=== PATIENT | female | born 1970 | race Asian ===

== ENCOUNTER 2025-08-25 16:06 | Emergency (ER) | payer BC, SELFPAY ==
[2025-08-25 16:09] VITALS: BP 139/66
[2025-08-25 16:36] LABS: Hematocrit 46.0 % (37.0-47.0); Hemoglobin 15.3 g/dL (12.0-16.0); Mean Corp Hgb Conc. 33.3 g/dL (33.0-37.0); Mean Corpuscular Volume 94.7 fL (81.0-99.0); Nucleated Red Blood Cells % 0 %; Platelet Count 237 10^3/uL (130-400); Red Cell Dist. Width 13.1 % (11.5-14.5)
[2025-08-25 16:46] LABS: ALT (SGPT) 21 U/L (0-35); AST (SGOT) 25 U/L (14-36); Albumin 5.0 g/dl (3.5-5.0); Alkaline Phosphatase 87 U/L (38-126); Blood Urea Nitrogen 28 mg/dl (7-17); Calcium 9.6 mg/dl (8.4-10.2); Carbon Dioxide 19 mmol/L (22-30); Chloride 104 mmol/L (98-107); Glucose 140 mg/dl (70-99); Potassium 4.5 mmol/L (3.5-5.1); Sodium 139 mmol/L (135-145); Total Protein 8.5 g/dl (6.3-8.2); eGFR > 60.00
--- NOTE | 2025-08-25 17:50 | ED.GENMED ---
History of Present Illness
General
Chief Complaint: Ear Problem
Source: patient and family
Exam Limitations: none
Time Seen by Provider: 08/25/25 17:07
History of Present Illness
History of Present Illness:
55-year-old female with past medical history of hypertension hyperlipidemia [place] on Eliquis presents to the ER complaining of left ear pain which started 1 week ago. She was placed on antibiotics (amoxicillin) by family doctor on Monday without
improvement. She was seen urgent care and started on Augmentin and methylprednisone yesterday. She reports she has had continued pain to her left face and left ear region which has gotten worse despite medications. She denies any fevers. She was
vomiting multiple times yesterday. Patient noted that her left eye was red today. Patient reports eye feels a little itchy denies any pain she does not wear contact lenses. Denies any decreased vision.
Phy Exam
General Physical Exam
General Presentation: no apparent distress
General age: appears stated age
General Skin: warm and dry
General Habitus: normal
General Mental: alert
General Hydration: appears well hydrated
ENT Exam
ENT Exam: EOMI, TM's normal and other (Left tympanic membrane appears normal left canal clear nontender over tragus; nontender over temporal region )
Eye Exam
Eye Exam: PERRL, EOMI and other (Left eye appears mildly injected)
Eye Exam General: PERRL: bilateral and EOM intact: bilateral
Pupil Exam: Bilateral: round and reactive
Neurological Exam
Neurological Exam: alert, oriented x3, no motor deficits and no sensory deficits
Musculoskeletal Exam
Musculoskeletal Exam: full ROM
Skin Exam
Skin Exam: normal color, warm/dry and other (No swelling to face no erythema to face)
Psychiatric Exam
Psychiatric Exam: normal mood/affect
Course
Orders/Labs/Results
Orders:
Orders
08/25/25 16:19
Complete Blood Count/With Diff Urgent
Comprehensive Metabolic Panel Urgent
08/25/25 17:59
CT Head W/o Iv Contrast Urgent
Comment:
Reason For Exam: headache
08/25/25 18:01
CT Facial Bones W/ Iv Contrast Urgent
Comment:
Reason For Exam: left ear/face pain
08/25/25 18:02
IV Insert/Care/Rem.- Treatment PRN
0.9% Sodium Chloride 1000 ml [Nss] 1,000 ml IV BOLUS
08/25/25 19:57
Ketorolac [Toradol] 15 mg IV NOW STA
08/25/25 20:02
Acetaminophen 1000MG/100Ml [Ofirmev] 1,000 mg in 100 ml IV ONCE
Acetaminophen IV Indication:: ED Narcotic Naive Pt-ONCE
Erythromycin (Ilotycin) [Erythromycin 0.5% Ophthalmic Ointment] See Dose Instructions OPHTH NOW STA
08/25/25 20:37
0.9% Sodium Chloride 1000 ml [Nss] 1,000 ml IV BOLUS
Diphenhydramine [Benadryl] 25 mg IV NOW STA
Metoclopramide [Reglan] 10 mg IV NOW STA
Abnormal Lab Results
08/25/25
16:19
MCH 31.5 H pg
(27.0-31.0)
Absolute Neuts (auto) 7.8 H 10^3/uL
(1.4-6.5)
Absolute Lymphs (auto) 0.7 L 10^3/uL
(1.2-3.4)
Neutrophils % 88.3 H %
(42.2-75.2)
Lymphocytes % 8.3 L %
(20.5-51.1)
Carbon Dioxide 19 L mmol/L
(22-30)
BUN 28 H mg/dl
(7-17)
Glucose 140 H mg/dl
(70-99)
Total Bilirubin 2.1 H mg/dl
(0.2-1.3)
Total Protein 8.5 H g/dl
(6.3-8.2)
08/25/25 16:19
08/25/25 16:19
Vital Signs
Initial and Last Documented VS:
Initial Vital Signs
Temp Pulse Resp BP Pulse Ox
98.0 F 98 16 139/66 98
08/25/25 16:09 08/25/25 16:09 08/25/25 16:09 08/25/25 16:09 08/25/25 16:09
Last Documented Vital Signs
Temp Pulse Resp BP Pulse Ox
98.0 F 98 16 139/66 98
08/25/25 16:09 08/25/25 16:09 08/25/25 16:09 08/25/25 16:09 08/25/25 17:54
Farmworkers consulted with Physician
Farmworkers consulted with physician?: Yes
Name of Physician Consulted: Kylie
MDM/Problems Addressed
Differential Diagnosis Includes:
Not limited to otitis media otitis externa abscess cellulitis
MDM/Problems Addressed:
As documented patient is a 55-year-old female who has had left ear pain for the past week and now left facial pain. She was started on antibiotics however still with persistent symptoms. She did have vomiting yesterday. She complains mostly of
left-sided facial pain and ear pain. She also noticed that her left eye was injected today. On exam she is in no acute distress she denies any fevers and is afebrile her white count is normal BUN minimally elevated patient was ordered fluids. On
exam patient has no obvious otitis media or otitis externa. Because of patient's pain CT of the facial bones was done with contrast which is negative for otitis externa no collection or abscess no cellulitis by CT. There is degenerative changes of
the left temporomandibular joint, this may be contributing to patient's symptoms. Her head CT is negative. Will give a dose of IV Ofirmev as patient is on anticoagulation. The redness to patient's left eye will treat with erythromycin.
2039: On reexam patient complains of left-sided headache this also might be migraine/headache causing her symptoms will give a dose of Reglan Benadryl fluids and reevaluate and plan to discharge if improvement
2129: Patient feeling better wants to go home. Discussed close outpatient follow-up with the doctor.
*Radiology
Radiology exam reviewed: radiology read reviewed
*Pulse Oximetry
SaO2: 98
Oxygen Mode of Delivery: Room air
Patient hypoxic: no
*Critical Care Note
Total Time (30-74mins, 75-104mins- exclusive of procedures): Not Applicable
ED Attending Note
-
Portions of this chart may have been created with voice recognition software.� Occasional wrong word or��sound alike� substitutions may have occurred due to the inherent limitations of voice recognition software.
Discharge Plan
Departure
Patient Disposition: Home (Routine Discharge)
Date of Disposition: 08/25/25
Time of Disposition: 21:32
Patient with high blood pressure during this ER visit?: Yes
Condition: Fair
Covid-19: Not Applicable
Discharge Problem:
Acute ear pain, Acute facial pain, Conjunctivitis, Headache
Instructions: Conjunctivitis (pink eye), Headache in adults - ED (DC), BLOOD PRESSURE
Prescriptions:
New
erythromycin 5 mg/gram (0.5 %) ointment
1 applic ophthalmic (eye) Q6H Qty: 3.5 0RF
Referrals:
Jose Isbell MD [Family Provider, Internal Medicine]
Activity Restrictions/Additional Instructions:
There is no obvious ear infection and your CAT scan of your head and facial bones was negative for infection and no other acute concerning findings were found.
You have a headache as well as facial pain.
Follow-up with family doctor in the next several days for reevaluation of symptoms. You may take Tylenol as needed for discomfort.
You also have conjunctivitis of your left eye :please use erythromycin ointment as discussed: Half inch into left eye every 6 hours for the next 5 days
A prescription for this medication was sent to your pharmacy
Interventions
Interventions:
*Risk Screen - Suicide Last Done: 08/25/25 16:07
*General Assessment Last Done: 08/25/25 16:09
*Neglect/Abuse Screening Last Done: 08/25/25 16:07
*ED COVID-19 Vaccine History Last Done: 08/25/25 16:09
*ED Influenza Vaccine History Last Done: 08/25/25 16:09
[facility] Fall Risk Assessment Tool Last Done: 08/25/25 19:12
ED- Neurological Assessment Last Done: 08/25/25 18:03
ED-Skin Assessment Last Done: 08/25/25 18:03
Discharge Date and Time
Print Language: WELSH
[2025-08-25] MEDS: NSS 1000 IV ×2 (18:14→20:43)
[2025-08-25] MEDS: ERYTHROMYCIN 0.5% OPHTHALMIC OINTMENT 1 APPLIC OPHTH (20:10)
[2025-08-25] MEDS: OFIRMEV 100 IV (20:10)
[2025-08-25] MEDS: REGLAN 10 MG IV (20:44)
[2025-08-25] MEDS: BENADRYL 25 MG IV (20:44)
== END 2025-08-25 21:53 | disposition home or self-care (01) ==
LOC: EMR 16:06
PROVIDERS: Emergency Medicine; EMERGENCY PHYSICIAN Emergency Medicine; FAMILY PHYSICIAN Internal Medicine
DX: H92.02 Otalgia, left ear (principal); R51.9 Headache, unspecified; H10.9 Unspecified conjunctivitis; E78.00 Pure hypercholesterolemia, unspecified; I10 Essential (primary) hypertension; Z79.01 Long term (current) use of anticoagulants
CPT/HCPCS: 99284; 96374; 96375; 96361; 70450; 70487; 80053; 85025; Q9967

== ENCOUNTER 2025-08-27 23:43 | Inpatient (IN) | payer BC, SELFPAY ==
[2025-08-27] VITALS (24 sets, daily range): BP systolic 94–130; BP diastolic 60–86; BMI 23.7
[2025-08-27 21:15] LABS: Hematocrit 45.9 % (37.0-47.0); Hemoglobin 15.7 g/dL (12.0-16.0); Mean Corp Hgb Conc. 34.2 g/dL (33.0-37.0); Mean Corpuscular Volume 92.0 fL (81.0-99.0); Nucleated Red Blood Cells % 0 %; Platelet Count 222 10^3/uL (130-400); Red Cell Dist. Width 12.7 % (11.5-14.5)
--- NOTE | 2025-08-27 21:16 | ED.GENMED ---
History of Present Illness
General
Chief Complaint: Chest Pain
Time Seen by Provider: 08/27/25 21:08
History of Present Illness
History of Present Illness:
FOCUSED PAST MEDICAL HISTORY
- CAD
REVIEW OF OLD RECORDS
- I attempted to review the records at [facility] however I cannot find her records using [facility]
Note:
CHIEF COMPLAINT(S)
Chest discomfort
HISTORY OF PRESENT ILLNESS
The patient is a 55-year-old female with a past medical history significant for myocardial infarction and heart failure, presenting with chest discomfort that began a few hours ago. The patient describes the sensation as a tight, squeezing pressure.
She has previously experienced a heart attack and was treated at [facility] before being transferred to [facility], where she was diagnosed with heart failure. Her last known ejection fraction is reported to be 40%. The current chest discomfort does
not feel as severe as the heart attack did but feels somewhat similar. She was not administered nitroglycerin at home. Additionally, upon examination, the patient demonstrates signs consistent with herpes zoster on the left forehead and eyelid,
diagnosed earlier today, with symptoms reportedly starting a week ago.
PAST MEDICAL AND SURIGICAL HISTORY
History of myocardial infarction and heart failure with an ejection fraction of 40.
ADDITIONAL HISTORY OBTAINED FROM SOURCES OTHER THAN THE PATIENT
According to the patients , she was transferred from [facility] to [facility] due to heart failure.
SOCIAL DETERMINANTS AFFECTING HEALTH
The patient resides in [facility] and prefers to receive care at [facility].
REVIEW OF SYSTEMS
- Cardiovascular system: Reports chest discomfort described as tight, squeezing pressure.
- Dermatologic system: Exhibits signs of herpes zoster on left forehead and eyelid.
PHYSICAL EXAM
General: Alert, appears somewhat uncomfortable
Skin: Warm, with evidence of herpes zoster present on the left forehead and eyelid.
Head: Normocephalic, atraumatic.
Neck: Supple, trachea midline.
Eye, Ears, Nose, Mouth and Throat: Oral mucosa moist, left eyelid involved with zoster lesions.
Cardiovascular: Normal peripheral perfusion, No edema. No significant chest wall tenderness
Respiratory: Respirations are non-labored. Clear breath sounds
Gastrointestinal: Abdomen nondistended.
Back: Normal range of motion, Normal alignment.
Musculoskeletal: Normal ROM, normal strength.
Neurological: Alert and oriented to person, place, time, and situation, No focal neurological deficit observed.
Psychiatric: Cooperative, appropriate mood & affect.
PROBLEM LIST
Acute:
- Chest discomfort
- Herpes zoster affecting forehead and eyelid
Chronic:
- Heart failure
- Previous myocardial infarction
PLAN
The attending physician will confer with a head animal keeper regarding the patients current chest discomfort.
DIFFERENTIAL DIAGNOSIS
The differential diagnosis includes, in no particular order and is not limited to:
- Angina pectoris
- Myocardial infarction
- Herpes zoster-related pain
- Aortic dissection
- Pulmonary embolism
- Costochondritis
- Gastroesophageal reflux disease
- Panic attack
- Pericarditis
- Heart failure exacerbation
Disposition:
SUMMARY OF ENCOUNTER
The patient, a 55-year-old female with a history of myocardial infarction and heart failure, presented to the emergency department with chest discomfort described as a tight, squeezing pressure. Initial investigations showed a troponin level of
0.017 and an initial ECG that was borderline concerning for STEMI. However, after discussion with Dr. Yen, it was determined the ECG did not meet the criteria for STEMI, as it revealed Q waves suggestive of prior myocardial events. The patient
received nitroglycerin drip in the ED, which significantly reduced her chest pain from a 6/10 to a 1/10. Given her recent history of decreased ejection fraction and acute coronary syndrome seven months ago, admission to internal medicine was planned
for further management.
DISPOSITION
Admit
ASSESSMENT
The patients current presentation is suggestive of a likely angina episode. Given her background of heart failure and borderline findings, further inpatient evaluation is warranted.
EMERGENCY TREATMENTS ADMINISTERED
Nitroglycerin drip was initiated, resulting in significant pain relief.
MANAGEMENT OF THE PATIENTS CARE WAS DISCUSSED WITH
Case discussion was conducted with Dr. Yen regarding the ECG findings and the management plan. Additionally, past consultations included Dr. Najera at [facility] for a second opinion.
INDEPENDENT REVIEW OF LABS AND INTERPRETATION OF TESTS
- My independent review of the initial troponin level is 0.017.
- My independent review of the bicarbonate level is critically low at 13.
PATIENT EDUCATION AND COUNSELING
The patient was informed of the need for admission for further evaluation and monitoring given her complex cardiac history and current presentation.
MEDICATION RECONCILIATION
The patient is documented to be on empagliflozin (Jardiance).
MEDICAL DECISION MAKING
-Complexity of Data Reviewed: Chronic conditions affecting care, including history of myocardial infarction and heart failure. Differential diagnoses considered were: Angina pectoris, Myocardial infarction, Herpes zoster-related pain, Aortic
dissection, Pulmonary embolism, Costochondritis, Gastroesophageal reflux disease, Panic attack, Pericarditis, Heart failure exacerbation.
-Data:
Category 1:
Initial lab tests, including troponin and blood gas analysis, showed elevated troponin and low bicarbonate.
Category 2:
Input was received from independent historian sources, including Dr. Yen and Dr. Najera.
Category 3:
Discussion of management included Dr. Yen, who advised admission for further cardiac evaluation.
-Risk:
The decision to admit was influenced by complex cardiac history and current symptoms. Prescription medication management involved initiating a nitroglycerin drip to alleviate acute symptoms.
DIAGNOSIS
- Chest pain
- Hypobicarbonatemia (ICD-10: E87.2)
EKG
- Sinus subtle ST elevation in V2 through V4 along with septal and inferior Q waves with no old to compare
LABS
- Troponin 0.017, bicarb 13
UPDATE
- Concerning initial EKG borderline STEMI d/w Farshad -plan is to admit to medicine
- Pt improved on nitroglycerin drip
- On Eliquis 'for a blood clot near my heart that resolved'. Does not report h/o AFib/DVT/PE.
- Bicarb 13 on Jardiance
- Lactic acid normal with elevated beta-hydroxybutyrate
- Repeat troponin slightly higher at 0.024
- Overall chest pain has been significantly improving while on nitroglycerin drip
Phy Exam
Physical Exam
Physical Exam:
See HPI
Scores
Heart Score for Chest Pain Patients
STEMI patient?: Not applicable
Course
Orders/Labs/Results
Orders:
Orders
08/27/25 20:33
Electrocardiogram (*1) Urgent
Reason for Study: Chest Pain
EKG- Treatment ONCE
Test Result ONCE
08/27/25 21:08
Complete Blood Count/With Diff Urgent
Comprehensive Metabolic Panel Urgent
HCG, Serum Qualitative Screen Urgent
Comment: Notify provider if positive test present
Troponin I Urgent
08/27/25 21:17
EKG [Electrocardiogram (*1)] Urgent
Reason for Study: Chest Pain
08/27/25 21:18
EKG- Treatment ONCE
08/27/25 21:20
Aspirin 325 mg PO NOW STA
08/27/25 21:30
Nitroglycerin 100 mg/250 ml [Nitroglycerin Premix] 100 mg in 250 ml IV PER PROTOCOL
Initial dose in mcg/min, then titrate:: 10
Titrate to keep:: Chest Pain Free
Titrate by mcg/min:: 5 mcg/min, may increase by 10 mcg/min if dose > 20 mcg/min
Frequency of titrations (minutes):: every 3-5 minutes
Maximum dose in mcg/min:: 200
Begin to taper infusion when:: Remained at goal for 2hrs
Taper by mcg/min:: 5 mcg/min
Frequency of taper (minutes) if patient maintains goal:: 30
Taper to off?: Yes
If infusion off & no longer maintaining goal:: Contact Provider
08/27/25 21:48
Acetaminophen [Tylenol] 1,000 mg PO NOW STA
08/27/25 22:27
0.9% Sodium Chloride 500 ml [Nss] 500 ml IV BOLUS
08/27/25 22:38
Acetone [B-Hydroxybutyrate] Urgent
Lactic Acid Urgent
Troponin I Urgent
08/27/25 23:25
Admit/Transfer Patient As Directed
Co-Sign Provider:
Level of Care: Inpatient admission
Assign to:: ICU
Physician / Group: Vlad
Diagnosis: DKA
Reason for Hospitalization: DKA, chest pain, zoster
Expected length of stay greater than two midnights?: Yes
ELOS- Estimated Length of Stay in days: 2
I certify the patient meets the requirements for IP care: Yes
PRN Pain Medication Management As Directed
May give lesser potent ordered pain med per pt: Yes
preference::
Protocol:: Medication orders for pain may be administered in a
manner that supports deferring to patient preference
when the pt is:
- Requesting an ordered lesser potent pain medication.
Least to most potent pain medications are defined
as: acetaminophen < NSAID < tramadol < opioids
(morphine, oxycodone, hydromorphone).
- Requesting a lesser dose of the same medication IF
ORDERED.
- Requesting a less intrusive route of administration
if both routes are prescribed by the provider (PO <
IV).
08/27/25 23:29
Venous Blood Gas Stat
%Oxygen/Room Air: RA
08/27/25 23:31
Code Status As Directed
Resuscitation Status: Full Code
Abnormal Lab Results
08/27/25 08/27/25 08/27/25
21:08 22:38 23:29
MCH 31.5 H pg
(27.0-31.0)
Absolute Neuts (auto) 8.2 H 10^3/uL
(1.4-6.5)
Absolute Lymphs (auto) 0.4 L 10^3/uL
(1.2-3.4)
Neutrophils % 93.6 H %
(42.2-75.2)
Lymphocytes % 4.7 L %
(20.5-51.1)
Monocytes % 1.1 L %
(1.7-9.3)
VBG pCO2 30 L mmHg
(35-48)
VBG pO2 140 H mmHg
(30-50)
VBG HCO3 16.2 L mmol/L
(22-27)
Sodium 133 L mmol/L
(135-145)
Carbon Dioxide 13 L* mmol/L
(22-30)
BUN 30 H mg/dl
(7-17)
Glucose 144 H mg/dl
(70-99)
Total Bilirubin 2.0 H mg/dl
(0.2-1.3)
Total Protein 8.9 H g/dl
(6.3-8.2)
Albumin 5.1 H g/dl
(3.5-5.0)
B-Hydroxybutyrate 3.79 H mmol/L
(0.02-0.27)
08/27/25 21:08
08/27/25 21:08
Vital Signs
Initial and Last Documented VS:
Initial Vital Signs
Temp Pulse Resp BP Pulse Ox
37.1 C 106 20 122/86 95
08/27/25 20:42 08/27/25 20:42 08/27/25 20:42 08/27/25 20:42 08/27/25 20:42
Last Documented Vital Signs
Temp Pulse Resp BP Pulse Ox
37.1 C 92 17 119/82 97
08/27/25 20:42 08/27/25 22:50 08/27/25 22:05 08/27/25 22:50 08/27/25 22:50
*Pulse Oximetry
SaO2: 97
Oxygen Mode of Delivery: Room air
Patient hypoxic: no
*Critical Care Note
Total Time (30-74mins, 75-104mins- exclusive of procedures): Not Applicable
ED Attending Note
-
Portions of this chart may have been created with voice recognition software.� Occasional wrong word or��sound alike� substitutions may have occurred due to the inherent limitations of voice recognition software.
Discharge Plan
Departure
Patient Disposition: Admit
Date of Disposition: 08/27/25
Time of Disposition: 22:29
Presentation/result/management discussed w/ accepting MD/DO: Hospitalist
Discharge Problem:
Chest pain
Interventions
Interventions:
*Risk Screen - Suicide Last Done: 08/27/25 20:42
*General Assessment Last Done: 08/27/25 20:42
*Neglect/Abuse Screening Last Done: 08/27/25 20:42
*ED COVID-19 Vaccine History Last Done: 08/27/25 20:42
*ED Influenza Vaccine History Last Done: 08/27/25 20:42
[facility] Risk Assessment Tool Last Done: 08/27/25 21:15
ED- Cardiac Assessment Last Done: 08/27/25 21:12
[2025-08-27] MEDS: NITROGLYCERIN PREMIX 250 IV (21:25)
[2025-08-27] MEDS: ASPIRIN 325 MG PO (21:28)
[2025-08-27 21:32] LABS: HCG, Serum Qualitative Screen Negative
[2025-08-27 21:39] LABS: ALT (SGPT) 20 U/L (0-35); AST (SGOT) 26 U/L (14-36); Albumin 5.1 g/dl (3.5-5.0); Alkaline Phosphatase 81 U/L (38-126); Blood Urea Nitrogen 30 mg/dl (7-17); Calcium 10.0 mg/dl (8.4-10.2); Carbon Dioxide 13 mmol/L (22-30); Chloride 102 mmol/L (98-107); Estimated Creatinine Clearance 65 ml/min; Glucose 144 mg/dl (70-99); Potassium 4.7 mmol/L (3.5-5.1); Sodium 133 mmol/L (135-145); Total Protein 8.9 g/dl (6.3-8.2); Troponin I 0.017 ng/ml; eGFR > 60.00
[2025-08-27] MEDS: TYLENOL 1000 MG PO (21:55)
[2025-08-27] MEDS: NSS 500 IV (22:40)
--- NOTE | 2025-08-27 22:53 | HPS.HSE ---
Family Physician
-
Family Physician: Jose Isbell
Chief Complaint
-
Chest pain
History of Present Illness
This is a 55-year-old female who has a past medical history significant for CAD status post ND and PCI in December of this year, ischemic cardiomyopathy with depressed EF, currently on while anticoagulation with Eliquis and presents presents to the
emergency department with episode of chest pressure in the setting of recurrent headaches and left eye redness and pain.
Patient reported that she has been having intermittent chest pressure for several months up until about 2 weeks ago when it appeared to resolve. She is followed up with [facility] and also had a second opinion pending. She reported that her
chest pain recurred again today and she describes as sharp pressure that is substernal and lasted over shortness of breath and then nausea. She has had multiple days of vomiting from a headache as well.
Patient has been seen in the emergency department about 2 to 3 days ago for a headache and excessive lacrimation and eye redness. She was diagnosed initially with ear infection as well as possible conjunctivitis. Patient was initially placed on
antibiotics. When she came to the emergency department antibiotics was discontinued and patient was placed on eye ointment. She returned to her urgent care and antibiotics were restarted she was placed on polymyxin and was started on antiviral
agent. She also was started on rimegepant which usually improve the headache. Reports having worsening chest pressure in the setting of this stress and headache.
On arrival chest pain was initially a 6-7 out of 10. She is currently reporting the chest pain that is 1 after being placed on a nitroglycerin drip.
In the emergency department blood pressure remained stable, 120/87, pulse rate of 98 oxygen saturation of 97 and a temperature of 98.8. ECG shows normal sinus rhythm at a rate of 94 with T wave inversions in V1 through V5. Initial troponin 0.017.
Repeat troponin pending. CBC was unremarkable. Electrolytes were stable except for a bicarb of 13. BUN 30 creatinine 0.8 and a glucose of 144.
Medical History
Past Medical History
Past Medical History: Reports CAD (Status post ND and PCI with stent placements)
Past Surgical History: Reports None
Social History
Tobacco: Non-smoker
Alcohol: None
Drug: None
Personal:
Living: With Family
Family History
Family History: Not pertinent
Allergies / Home Medications
Allergies reflects when Allergies were last updated in [facility].
Home Medications with original date entered in [facility]
Allergy/Medication List:
Allergies
Allergy/AdvReac Type Severity Reaction Status Date / Time
No Known Allergies Allergy Verified 08/27/25 20:46
Home Medications
Eliquis 5 mg tablet, 5 mg p.o. twice daily
Atorvastatin 40 mg tablets, 40 mg p.o. at bedtime
Famotidine 20 mg tablet, 20 mg p.o. twice daily
Valsartan 40 mg tablets, 20 mg p.o. twice daily
Brilinta 90 mg tablets, 90 mg p.o. twice daily
Metoprolol succinate 25 mg tablets, 25 mg p.o. daily
Jardiance 10 mg tablets, 10 mg p.o. daily
Review of Systems
-
Constitutional: Reports No Symptoms
EENT: Reports Tearing and Other (Left eye erythema, blurriness, pain behind the left eye, denies foreign body sensation,)
Respiratory: Reports No Symptoms
Cardiac: Reports Chest Pain
Abdomen/GI: Reports No Symptoms
: Reports No Symptoms
Musculoskeletal: Reports No Symptoms
Skin: Reports No Symptoms
Neurological: Reports No Symptoms
Endocrine: Reports No Symptoms
Hematologic/Lymphatic: Reports No Symptoms
Psych: Reports No Symptoms
Physical Exam
Vital Signs
Vital Signs
Temp Pulse Resp BP Pulse Ox
98.8 F 92 17 119/82 97
08/27/25 20:42 08/27/25 22:50 08/27/25 22:05 08/27/25 22:50 08/27/25 22:50
Physical Exam
General: Well Developed, Well Nourished and No Apparent Distress
HEENT: NormoCephalic, Moist mucous membranes, Atraumatic, PERRLA and [place] Conjunctivae; No No Ptosis or Oxygen
Respiratory: Clear
Cardiac: S1/S2 and Regular Rhythm; No Murmur or Rub
GI: Soft, Non Tender, Non Distended and Normal Bowel Sounds; No Organomegaly
Rectal: Deferred by Provider
Musculoskeletal: No Clubbing, No Cyanosis and No Edema
Skin: No Rash
Neuro: AO x 3 and Nonfocal/grossly intact
Laboratory Results
-
08/27/25 21:08
08/27/25 21:08
Laboratory Results
Total Bilirubin 2.0 mg/dl (0.2-1.3) H 08/27/25 21:08
AST 26 U/L (14-36) 08/27/25 21:08
ALT 20 U/L (0-35) 08/27/25 21:08
Alkaline Phosphatase 81 U/L (38-126) 08/27/25 21:08
Troponin I 0.017 ng/ml 08/27/25 21:08
Data Reviewed
-
Medical Tests (Nuc Med, Echo, EKG etc): Image Personally Visualized and interpreted
Lab Data: Labs Reviewed by me
Old Records: Reviewed
Impression/Plan
-
IMPRESSION:
55-year-old with past medical history significant for recent ND status post stenting on Eliquis and Brilinta presenting to the emergency department with chest pain. Patient has been battling left-sided eye pain tearing and blurriness over the last
few days and was diagnosed with early shingles.
PLAN:
Chest pain -history of CAD coming in with chest pressure improved with nitroglycerin
� Admit to ICU
� Continue nitroglycerin drip to achieve pain control
� Continue Brilinta, aspirin 325 given
� Trend troponin, if increased will start heparin drip
� If troponin is stable will restart patient's Eliquis
� Echocardiogram
� Cardiology consult
DKA -non hyperglycemic DKA in setting of SGLTII inh. Anion gap is 18, patient is on Jardiance. Has known insulin dependent diabetes since her ND and is on Jardiance for both GDMT and diabetes. Also recently on steroids
- Obtain venous blood gas
� Obtain beta-hydroxybutyrate
� Obtain urinary ketones
� Start insulin drip low rate due to low glucose, glucose containing and K fluids per protocol till gap closure
� Hold Jardiance
Shingles - ? zoster ophalmitis
- Discussed with ophthalmology (Dr. Davey Miranda)
- start acyclovir IV (patient already on valgancyclovir but only took one dose), topical steroids and systemic steroids (otitis?)
� ID consultation
DVT prophylaxis�on anticoagulation
CODE STATUS�full code
[2025-08-27 23:10] LABS: Troponin I 0.024 ng/ml
[2025-08-27 23:40] LABS: Venous Blood Gas B.E. -8.2 mmol/L (-4 to +4); Venous Blood Gas O2 Sat % 99.6 %
[2025-08-28] VITALS (43 sets, daily range): BP systolic 94–149; BP diastolic 60–88; BMI 23.0
[2025-08-28 01:05] LABS: Glucose - Point of Care 126 mg/dl (70-99)
[2025-08-28] MEDS: D5/0.45%NSS with KCL 20 MEQ 1000 IV ×2 (01:36→09:49)
[2025-08-28] MEDS: ZOVIRAX INJECTION 112 MG IV ×3 (01:39→17:25)
[2025-08-28] MEDS: NOVOLIN R INSULIN INFUSION 100 IV (02:19)
[2025-08-28 02:27] LABS: Glucose - Point of Care 148 mg/dl (70-99)
[2025-08-28] MEDS: DILAUDID 0.25 MG IV (02:27)
--- NOTE | 2025-08-28 02:35 | PTCARENOTE ---
Addendum entered by Rafaela Sapp RN 08/28/25 03:15:
Nitro gtt tapered off around 02:30, patient denies chest pain since admission to ICU. Will monitor. At this time patient verbalized good pain relief with stat dose of dilaudid.
HR tachy to 140's-150's, EKG obtained. Patient denies chest pain with tachycardia, confirms some flutter feeling intermittently in her chest since admission to ICU. Reviewed with SHAMIKA William. Will continue to monitor closely.
Original Note:
Received patient from ED a short time ago. Patient aaox3, able to make needs known. C/o pain 6-7/10 to left eye and headache, states tylenol did not help in pain relief. Chest pain 0/10 at this time. Nitro gtt decreased to 20mcg/3ml. Discussed pain
with Stewart WICK. NSR on the monitor, positive pedal and radial pulses. Lungs cta throughout, pox 97% on ra. Bs active x4, patient urinated approx 250ml upon arrival to ICU. NPO at this time. Patient has right wrist 20g with D5 0.45%NS and 20mEq
K and insulin gtt at 1u running, left a/c 20g with antiviral. Reviewed orders and gtts with Stewart WICK. Stat dose of dilaudid administered for left eye and headache pain. Patient currently resting in bed with observed comfort. Will continue to
monitor patient closely.
[2025-08-28 02:38] LABS: Hematocrit 39.9 % (37.0-47.0); Hemoglobin 13.8 g/dL (12.0-16.0); Mean Corp Hgb Conc. 34.6 g/dL (33.0-37.0); Mean Corpuscular Volume 95.0 fL (81.0-99.0); Platelet Count 205 10^3/uL (130-400); Red Cell Dist. Width 12.5 % (11.5-14.5)
[2025-08-28 02:49] LABS: APTT 31.6 Sec (23.4-35.0)
[2025-08-28 03:01] LABS: Magnesium 2.1 mg/dl (1.6-2.3)
[2025-08-28 03:08] LABS: Blood Urea Nitrogen 30 mg/dl (7-17); Calcium 9.1 mg/dl (8.4-10.2); Carbon Dioxide 12 mmol/L (22-30); Chloride 106 mmol/L (98-107); Estimated Creatinine Clearance 65 ml/min; Glucose 145 mg/dl (70-99); Potassium 4.5 mmol/L (3.5-5.1); Sodium 134 mmol/L (135-145); eGFR > 60.00
[2025-08-28 03:13] LABS: Troponin I 0.031 ng/ml
[2025-08-28 03:38] LABS: Glucose - Point of Care 144 mg/dl (70-99)
[2025-08-28 04:42] LABS: Glucose - Point of Care 146 mg/dl (70-99)
[2025-08-28 05:50] LABS: Glucose - Point of Care 127 mg/dl (70-99)
[2025-08-28 06:38] LABS: Blood Urea Nitrogen 29 mg/dl (7-17); Calcium 9.0 mg/dl (8.4-10.2); Carbon Dioxide 16 mmol/L (22-30); Chloride 107 mmol/L (98-107); Estimated Creatinine Clearance 74 ml/min; Glucose 126 mg/dl (70-99); Potassium 4.2 mmol/L (3.5-5.1); Sodium 134 mmol/L (135-145); eGFR > 60.00
[2025-08-28 06:42] LABS: Glucose - Point of Care 112 mg/dl (70-99)
--- NOTE | 2025-08-28 07:54 | CON.CAR ---
Consultation
Consultation Request
Date/Time Consultation Requested: 08/28/2025; 00:50.
Date/Time Consultation Performed: 08/28/2025; 07:55.
Requesting Provider: Mayte Chu M.D.
Performing Provider: Leander Yen D.O.
Reason for Consultation: Chest pain, hx of CAD, hx of heart failure.
Medical History
-
Chief Complaint: Chest pain.
History of Present Illness:
55 y/o female with relatively little contact at [facility] admitted with multiple complaints, most notably chest discomfort. The patient has a PMHX that is notable for NJ treated with PCI on ticagrelor, complicated by ischemic cardiomyopathy and HFrEF
that reportedly required a prolonged hospitalization at [facility] as well as reportedly an LV thrombus on apixaban. She reports that her last LVEF was 40% (no records available). She has been having intermittent stabbing pain for the last several
months. She underwent repeat catheterization in June (per her report) which demonstrated patency of previous stent. She describes 1-2 weeks of nausea and vomiting to the point of a 7lb weight loss. Chest pain began at yesterday evening. She
describes her chest pain as tightness/squeezing, similar to but not as severe as her NJ pain and different from her stabbing pain. Ambulation made the pain worse. She denies any positional change in chest pain. She also admits to some shortness
in breath, but this appeared disassociated from her chest pain. She presented to [facility] ER and initial EKG was abnormal (anterolateral Q waves with T wave inversions and non-specific ST abnormalities). I was contacted out of concern for STEMI, but
the EKG did not meet STEMI criteria. The patient was managed with medication, including nitroglycerin gtt with relief of symptoms.
Separately, the patient was recently seen for left ear pain and left eye injection at [facility] ER. She was treated for bacterial conjunctivitis with topical erythromycin and discharged. At this presentation, she appears to have left sided facial
vesicles along the forehead and eyelid consistent with herpes zoster outbreak along the CN V1 distribution.
In the emergency room, initial lab evaluation demonstrated a normal troponin level. CBC was unremarkable. Her metabolic profile demonstrated an gapped metabolic acidosis (HCO3 = 13, AG = 18) with low level hyperglycemia (144) and a normal lactate
(1.5). The patient is on SGLT2i. Beta hydroxy butyrate is 3.79.
Overnight, the patient's nitroglycerin gtt has been weaned off without return of chest pain. She did receive a dose of hydromorphone for her left facial/eye pain with good relief. Telemetry demonstrated atrial fibrillation with RVR to 140-150's
without chest pain. She did report palpitations per the nursing notes. Troponin 0.017 --> 0.024 --> 0.031. Her nausea continues. She denies any history of atrial fibrillation.
Past Medical History
Past Medical History: CAD, CHF, HTN, Hypercholesterolemia, NIDDM and NJ
Social History
Tobacco: Non-Smoker
Alcohol: None
Drug: None
Family History
Family History: Reviewed & Not Pertinent
Allergies / Home Medications
Allergy/AdvReac Type Severity Reaction Status Date / Time
No Known Allergies Allergy Verified 08/27/25 20:46
�Medication �Instructions �Recorded �Confirmed �Type
erythromycin 5 mg/gram (0.5 %) eye 1 applic ophthalmic (eye) Q6H #3.5 08/25/25 Rx
ointment grams
Review of Systems
-
History Source: Patient
Constitutional: Weight Loss
EENT: Tearing and Other (Left eye pain.)
Respiratory: Trouble Breathing
Cardiac: Chest Pain and Palpitations
Abdomen/GI: Nausea and Vomiting
: No Symptoms
Musculoskeletal: No Symptoms
Skin: Rash (Left forehead and eyelid.)
Neurological: No Symptoms
Endocrine: No Symptoms
Hematologic/Lymphatic: No Symptoms
Physical Exam
Vital Signs
Temp Pulse Resp BP Pulse Ox
36.7 C 74 18 113/73 96
08/28/25 03:59 08/28/25 06:15 08/28/25 06:15 08/28/25 06:15 08/28/25 06:15
Lab Results
08/28/25 02:16
08/28/25 05:57
Troponin I 0.031 ng/ml D 08/28/25 02:16
Physical Exam
General: Well Developed, Well Nourished, Pain (Left face.) and Poor Appetite
HEENT: Normocephalic, Anicteric, Moist Mucous Membranes and Other (Vesicles noted along the left V1 dermatome.)
Respiratory: Clear and Non Labored Respirations
Cardiac: S1/S2 and Regular Rhythm
Breast: Deferred by me
GI: Soft, Non Tender, Non Distended and Normal Bowel Sounds
Rectal: Deferred by Provider
Genito-urinary: No Costovertebral Tender
Musculoskeletal: No Clubbing, No Cyanosis and No Edema
Skin: Warm, Dry and Other (Rash as noted above.)
Neuro: AO x 3
Hematologic/Lymphatic: No Lymphadenopathy
Psych: Calm
Impression / Plan
-
Impression/Plan: 55 y/o female that is typically seen at [facility] and with a history of HTN, HLD, NJ s/p PCI complicated by ischemic cardiomyopathy/HFrEF and [ ] on apixaban admitted with chest pain, left V1 zoster outbreak and euglycemic DKA.
Primary re dye hand: Davis Morton M.D.
#Chest pain
-Atypical, resolved.
-Initially treated with nitro gtt which has been weaned off.
-The patient does have concerning underlying substrate, but her chest pain seems somewhat atypical. Rapid HR without reproduction of chest pain with negative troponins leans against ACS.
-DDx includes MSK pain/costochondritis, GERD/esophageal spasm (N/V/response to nitro), PE, pericarditis, acute aortic syndrome (unlikely).
-Echocardiogram this morning.
-Check D-Dimer, CRP/ESR (these may be elevated due to zoster).
-We will try to get records from [facility].
-Start pantoprazole 40 mg PO daily.
#CAD
-Chronic.
-Hx of NJ with PCI.
-Maintain antiplatelet therapy. The question will be to transition to clopidogrel (from ticagrelor).
-Records.
#Ischemic Cardiomyopathy/HFrEF
-Chronic. No signs of decompensated HF.
-Echocardiogram pending.
-Records.
#Atrial fibrillation
-New diagnosis, observed on telemetry.
-Rate control with metoprolol.
-CHADS2-VASc = 4 (CHF, DM, vascular disease, female gender).
-Therapeutic anticoagulation with apixaban.
#DM
-Chronic, currently in euglycemic DKA (likely due to SGLT2i).
-Beta hydroxy butyrate elevated.
-Hydration + insulin IV until gap is closed. Hold empagliflozin.
-Check HbA1c.
#Zoster
-Acute.
-ID consulted.
-Management per primary team and ID.
Data Reviewed
-
EKG: Tracing Personally Visualized and interpreted and Discussed with Physician
Radiology: Image Personally Visualized and interpreted and Report Reviewed by me
CT Scan: Image Personally Visualized and interpreted and Report Reviewed by me
Labs: Labs Reviewed by me and Discussed with Physician
Old Records: Requested
[2025-08-28] MEDS: POLYTRIM OPHTHALMIC SOLUTION 1 DROP OPHTH ×4 (07:58→21:27)
[2025-08-28] MEDS: PRED FORTE 1% EYE DROPS 1 DROP OPHTH ×4 (07:58→21:27)
[2025-08-28 07:59] LABS: Glucose - Point of Care 142 mg/dl (70-99)
--- NOTE | 2025-08-28 08:20 | CON.INTV ---
Consultation
Consultation Request
Date/Time Consultation Requested: 08/28/2025
Date/Time Consultation Performed: 08/28/2025
Requesting Provider: Dr. Huizar
Performing Provider: Dr. Donato
Reason for Consultation: Chest pain/Shingles/insulin gtt
Medical History
-
Chief Complaint: chest pain and headache
History of Present Illness:
55-year-old female non-smoker with a past medical history of CAD s/p PCI, ICM/HFrEF, reported history of LV thrombus on Eliquis, DM type II, hypertension and hypercholesterolemia who presented with chest pain, left eye pain/redness and recurrent
headaches. She has been having intermittent chest pressure for several months and seem to resolve 2 weeks ago. Her chest pain then recurred prior to arrival which was sharp, substernal and associate with nausea. She has had a significant headache
and been vomiting with reduced oral intake since Monday. On this past Monday (08/26/2025), she started to have left eye redness with lesions popping up. She does have a history of chickenpox, and has never had the shingles vaccine. She does
have some blurriness in the left eye. Her headache is significant and it is worsened with loud noises and with light. In the ER she was afebrile with pulse rate 106, respiratory rate 20, BP 122/86 and SpO2 95% on room air. Labs showed normal WBC
at 8.7, Hb 15.7, D-dimer negative at <0.27, pH showing mild metabolic acidosis at 7.34 with pCO2 30, serum bicarbonate level was initially 13, with sodium 133, glucose 144, T. bili 2.0, troponin negative at 0.017, and beta-hydroxybutyrate elevated
at 3.79. CT head showed no acute intracranial abnormality. CT facial bones showed no focal collection to suggest an abscess and no significant cellulitis. CXR showed no acute cardiopulmonary abnormality. She was given 500 cc bolus of NS 0.9% in
the ER, as well as aspirin, acetaminophen and started on nitroglycerin for her chest discomfort. Given that she is on Jardiance, there was concern for euglycemic DKA; insulin drip was started and she was admitted to the ICU for further care.
Exhibition Designer service consulted for additional management/recommendations.
When I saw the patient this morning, she is starting to feel better although still has a headache. Left eyelids remain swollen and red. Currently on room air breathing comfortably and saturating 98%. Current pulse rate 78 with BP 115/76. Patient
currently denies chest pain, SOB, fevers or chills. She is nauseous however and has poor appetite.
PMHx: CAD s/p PCI, ICM/HFrEF, ?LV thrombus on Eliquis, DM type II, hypertension, hypercholesterolemia, chickenpox (as a child)
PSHx: Coronary cath with PCI/stent
Past Medical History
Past Medical History: Other (Above as per HPI)
Past Surgical History: Other (Above as per HPI)
Social History
Tobacco: Non-smoker
Alcohol: None
Drug: None
Personal:
Living: With Family
Family History
Family History: Reviewed & Not Pertinent
Allergies / Home Medications
Allergies
Allergy/AdvReac Type Severity Reaction Status Date / Time
No Known Allergies Allergy Verified 08/27/25 20:46
Home Medications
�Medication �Instructions �Recorded �Confirmed �Last Taken �Type
erythromycin 5 mg/gram (0.5 %) eye 1 applic ophthalmic (eye) Q6H #3.5 08/25/25 Unknown Rx
ointment grams
apixaban 5 mg tablet (Eliquis) 5 mg PO BID 08/28/25 08/28/25 08/27/25 History
atorvastatin 40 mg tablet 40 mg PO HS 08/28/25 08/28/25 08/27/25 History
empagliflozin 10 mg tablet 10 mg PO DAILY 08/28/25 08/28/25 08/27/25 History
(Jardiance)
famotidine 20 mg tablet 20 mg PO BID 08/28/25 08/28/25 08/27/25 History
metoprolol succinate 25 mg 25 mg PO HS 08/28/25 08/28/25 08/27/25 History
tablet,extended release 24 hr
spironolactone 25 mg tablet 25 mg PO DAILY 08/28/25 08/28/25 08/27/25 History
ticagrelor 90 mg tablet (Brilinta) 90 mg PO BID 08/28/25 08/28/25 08/27/25 History
valsartan 40 mg tablet 20 mg PO BID 08/28/25 08/28/25 08/27/25 History
Review of Systems
-
History Source: Patient
All other systems: Negative unless noted
Vitals / Labs / Diagnostic Testing
Vital Signs
Temp Pulse Resp BP Pulse Ox
98.3 F 76 17 135/78 97
08/28/25 07:55 08/28/25 08:55 08/28/25 08:15 08/28/25 08:55 08/28/25 08:15
Lab Data
08/28/25 02:16
08/28/25 05:57
Laboratory Results
08/28/25
02:16
APTT 31.6
Diagnostic Testing:
Physical Exam
-
HEENT: Normocephalic and Anicteric
Cardiovascular: S1/S2, Rub (negative) and Peripheral Edema (negative)
Respiratory: Wheeze (negative), Rales (negative), Rhonchi (negative) and Non-Labored Respirations
GI: Soft, Non Distended, Non Tender and Normal Bowel Sounds
Neurology: Awake, Oriented and Tremors (negative)
Skin: Other (Left periorbital papular/vesicular lesions, some oozing around superior eyelid) and Other (Swelling + erythema of left-sided eyelids (superior and inferior))
General: Respiratory Distress (negative), Pain (Left eye + headache), Fever (negative) and Sweats (negative)
Assessment
-
Assessment: 55-year-old female non-smoker with a past medical history of CAD s/p PCI, ICM/HFrEF, reported history of LV thrombus on Eliquis, DM type II, hypertension and hypercholesterolemia who presented with chest pain, left eye pain/redness and
recurrent headaches. She has been having intermittent chest pressure for several months and seem to resolve 2 weeks ago. Her chest pain then recurred prior to arrival which was sharp, substernal and associate with nausea. She has had a
significant headache and been vomiting with reduced oral intake since Monday. On this past Monday (08/26/2025), she started to have left eye redness with lesions popping up. She does have a history of chickenpox, and has never had the shingles
vaccine. She does have some blurriness in the left eye. Her headache is significant and it is worsened with loud noises and with light. In the ER she was afebrile with pulse rate 106, respiratory rate 20, BP 122/86 and SpO2 95% on room air. Labs
showed normal WBC at 8.7, Hb 15.7, D-dimer negative at <0.27, pH showing mild metabolic acidosis at 7.34 with pCO2 30, serum bicarbonate level was initially 13, with sodium 133, glucose 144, T. bili 2.0, troponin negative at 0.017, and
beta-hydroxybutyrate elevated at 3.79. CT head showed no acute intracranial abnormality. CT facial bones showed no focal collection to suggest an abscess and no significant cellulitis. CXR showed no acute cardiopulmonary abnormality. She was
given 500 cc bolus of NS 0.9% in the ER, as well as aspirin, acetaminophen and started on nitroglycerin for her chest discomfort. Given that she is on Jardiance, there was concern for euglycemic DKA; insulin drip was started and she was admitted to
the ICU for further care. Exhibition Designer service consulted for additional management/recommendations.
Chronic conditions EXTRUDER TENDER: CAD s/p PCI, ICM/HFrEF, ?LV thrombus on Eliquis, DM type II, hypertension, hypercholesterolemia, chickenpox (as a child)
Impression:
#Starvation ketoacidosis
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
#Acute neuritis due to herpes zoster
#Atypical chest pain � now resolved
#CAD with Hx of PCI/stent on brilinta
#HFrEF/ICM - not in an acute exacerbation
#A-fib currently in NSR
#DM type II
#HTN
#Hypercholesterolemia
Plan:
- Given concern for starvation ketoacidosis as her pH was >7.3 and she has not been eating/drinking for >3 days, with reduced PO intake for up to 7 days, I will stop the insulin gtt now, and continue dextrose containing fluids as well as crystalloids
- Will start D5-LR and continue trending serum HCO3 and BOHB
- Patient states that the rash around her left eye started this past Monday � treatment is indicated given that it has been within 72 hours of onset
- Varicella zoster serology + PCR already ordered
- Ophthalmology consult placed - Dr. Miranda spoke to the admitting hospitalist who also recommended steroid eyedrops and patient also started on polymyxin/trimethoprim eyedrops
- Continue with IV acyclovir + prednisone
- Continue with antiviral therapy until all lesions have crusted
- If ophthalmology feels that patient has acute retinal necrosis, then treatment for this usually is intravitreal foscarnet - -> patient may need to be transferred to tertiary care center in this case
- Monitor for development of secondary bacterial infection
- Monitor her lesions to assure they are not progressing
- Pain control for acute neuritis (already on oral prednisone; and will also use short acting opioids); may use gabapentin as well especially if pain is significant at nighttime
- If patient develops unrelenting pain, she may need neural blockade with bupivacaine
- She has since been weaned off the nitroglycerin drip; her chest pain appears to be atypical and given her troponins have been negative this is unlikely to be cardiac related
- Cardiology consulted and PPI recommended given possible GI etiology to her chest discomfort
- Continue with ticagrelor + Eliquis
- Medical records being requested
- Maintain SpO2 >90-94% using supplemental O2 as needed
- Aspiration precautions
- prn nebulized bronchodilators - not currently bronchospastic
- Incentive spirometer encouraged 10x per hour for at least 4 hrs a day
- Maintain MAP>65
- Replete electrolytes with K>4, Mg>2
- Maintain euglycemia with goal BG 140-180; HbA1C: 6.4 on 08/28/2025
- Trend H/H and transfuse if needed to keep Hb>7g/dL; keep plt>20k, unless there is concern for bleeding then keep plt>50k
- Anti-emetics as needed; monitor QTc with goal <500ms (ideally <460ms)
- DVT ppx: Eliquis
Continue ICU level of care for this critically ill patient
Critical care statement: A total of 38 minutes of critical care time was provided for this patient today. This includes management of unstable vital signs, evaluation of the patient at bedside, reviewing the patient's pertinent medical records
including radiographs, microbiology, laboratory evaluations, and discussion with primary team, consultants, pharmacy, nutrition, physical therapy, case management, charge nurse, critical care nursing, and respiratory therapy.
[2025-08-28] MEDS: PEPCID 20 MG PO ×2 (08:55→20:09)
[2025-08-28] MEDS: TOPROL XL 25 MG PO (08:55)
[2025-08-28] MEDS: BRILINTA 90 MG PO ×3 (08:55→20:09)
[2025-08-28] MEDS: DIOVAN 20 MG PO ×2 (08:55→20:09)
[2025-08-28] MEDS: ELIQUIS 5 MG PO ×3 (08:55→20:09)
[2025-08-28] MEDS: VIBRAMYCIN 100 MG PO (08:56)
[2025-08-28] MEDS: DELTASONE 40 MG PO (08:56)
--- NOTE | 2025-08-28 08:57 | CON.ID ---
Consultation
-
Date/Time Consultation Requested: 08/28/2025 0050
Date/Time Consultation Performed: 08/28/2025 0845
Requesting Provider: Dr. Chu
Performing Provider: Dr. Lima
Reason for Consultation: Suspected zoster ophthalmicus
Chief Complaint / Past History
History of Present Illness
Drea Li is a 55-year-old female being evaluated at the request of Dr. Chu regarding zoster ophthalmicus. History is obtained from chart review, along with patient interview.
The patient initially presented to [facility] on 08/25 with complaints of left ear pain which started 1 week prior. Prior to her ER visit she had been placed on amoxicillin by her PCP, with no improvement in pain. She was then seen at an
urgent care and transitioned to Augmentin and methylprednisolone on 08/24. Despite these modalities she continued to have progressive left face and left ear pain. No vision changes were described at this time. She was ultimately diagnosed with
viral conjunctivitis and discharged with erythromycin ophthalmic ointment.
She presents back to the ER in 08/27 with complaints of chest discomfort which started several hours prior to evaluation. Upon further exam she was found to have skin changes on the left forehead consistent with herpes zoster, and Infectious
Diseases is asked to comment upon further antiviral therapy. At this time she has been started on IV acyclovir.
The patient reports no prior history of receiving shingles vaccine, although did have chickenpox as a child. She reports current vision changes (blurriness) along with swelling of her left eyelid. She notes marked pain of the left forehead, mild
area and notes photophobia.
Past History
Additional Past Medical History:
CAD; Hx [place]
CHF
Ischemic cardiomyopathy (EF ~ 40%)
HTN
HLD
Additional Past Surgical History:
PCI with stenting
Allergy History:
No Known Allergies Allergy (Verified 08/27/25 20:46)
Medications Reviewed: Yes
Current Antibiotics:
Acyclovir 600 mg IV q.8 hours
Doxycycline 100 mg p.o. q.12 hours
Home Medications:
Eliquis 5 mg tablet, 5 mg p.o. twice daily
Atorvastatin 40 mg tablets, 40 mg p.o. at bedtime
Famotidine 20 mg tablet, 20 mg p.o. twice daily
Valsartan 40 mg tablets, 20 mg p.o. twice daily
Brilinta 90 mg tablets, 90 mg p.o. twice daily
Metoprolol succinate 25 mg tablets, 25 mg p.o. daily
Jardiance 10 mg tablets, 10 mg p.o. daily
Social History
Tobacco: Non-Smoker
Alcohol: None
Drug: None
Personal:
Living: With Family
Employment: Not Employed
Family History
Family History: Not Pertinent
Review of Systems
Vital Signs
Temp Pulse Resp BP Pulse Ox
98.3 F 72 17 135/78 97
08/28/25 07:55 08/28/25 08:15 08/28/25 08:15 08/28/25 08:01 08/28/25 08:15
Physical Exam
Physical Exam
Constitutional: No Acute Distress, Comfortable and Non-toxic
Head: Normocephalic
Eyes: Pupils Equal, Pupils Round and Other (Left-sided conjunctival injection. Marked swelling of the left eyelids. No appreciable cloudiness of cornea.)
Oral: No Thrush and No Ulcers
Cardiovascular: S1/S2; Negative S3/S4
Pulmonary: Non Labored
Gastrointestinal: Soft, Non Tender and Non Distended
Extremities: Negative Edema, Cyanosis or Erythema
Skin: Rash (Vesicular rash in a few left V1 distribution. No Lock sign. No auricular lesions noted.)
Neurological: Awake and Alert
Psychological: Calm
Lab / Diagnostic Study Results
08/28/25 02:16
08/28/25 05:57
Abs Immat Gran (auto) 0.0 10^3/uL (0-0.05) 08/27/25 21:08
Absolute Neuts (auto) 8.2 10^3/uL (1.4-6.5) H 08/27/25 21:08
Absolute Lymphs (auto) 0.4 10^3/uL (1.2-3.4) L 08/27/25 21:08
Absolute Monos (auto) 0.1 10^3/uL (0.1-0.6) 08/27/25 21:08
Absolute Basos (auto) 0.0 10^3/uL (0-0.2) 08/27/25 21:08
Immature Gran % 0.5 % (0-0.5) 08/27/25 21:08
Neutrophils % 93.6 % (42.2-75.2) H 08/27/25 21:08
Lymphocytes % 4.7 % (20.5-51.1) L 08/27/25 21:08
Monocytes % 1.1 % (1.7-9.3) L 08/27/25 21:08
Eosinophils % 0.0 % (0-6) 08/27/25 21:08
Basophils % 0.1 % (0-2) 08/27/25 21:08
Lactic Acid 1.5 mmol/L (0.7-2.0) 08/27/25 22:38
Microbiology Results
Imaging:
08/28/2025 CXR (portable): no focal airspace disease. No pleural effusion or pneumothorax. Please see full dictation for additional detail.
08/25/2025 CT facial bones with IV contrast: mastoid air cells and middle ear appear patent bilaterally. No CT evidence to suggest otitis externa. No evidence for focal collection to suggest an abscess. No significant cellulitis evident by CT.
Please see full dictation for additional detail.
Assessment / Plan
Varicella zoster (V1 distribution)
Facial pain (secondary to above)
Chest pain
CAD; Hx [place]
CHF
Ischemic cardiomyopathy (EF ~ 40%)
HTN
HLD
Recommendations:
Continue with IV acyclovir.
Would consult Ophthalmology to assess for corneal involvement.
Follow creatinine while patient remains on IV acyclovir. Encourage fluid intake to prevent crystal nephropathy
Pain control. If persists, may need gabapentin or Lyrica.
Care Review
Plan reviewed with: Physician (Hospitalist)
[2025-08-28 09:05] LABS: Glucose - Point of Care 124 mg/dl (70-99)
--- NOTE | 2025-08-28 09:15 | PTCARENOTE ---
recd 0715 handoff at doorway, denies chest pain. glucoses noted, insulin gtt per protocol orders. feeling poorly, notes discomfort, headache and eye pain. ambulated to bathroom to void clear yellow, some increased nausea with activity, though
gait steady. Back to bed. call durán in reach. Echo completed approx 0830, seen by Drs. Yen and Janie. delayed 0800 meds until nausea was improved slighty, see MAR. Home med list obtained.
--- NOTE | 2025-08-28 09:32 | W.PN.HOSP.TC ---
Today's Communication/Plan
-
see bold
Assessment / Plan
Assessment / Plan
HPI: 55-year-old female presented to [facility] on 08/25 with complaints of left ear pain which started 1 week prior. Prior to her ER visit she had been placed on amoxicillin by her PCP, with no improvement in pain. She was then seen at an
urgent care and transitioned to Augmentin and methylprednisolone on 08/24. Despite these modalities she continued to have progressive left face and left ear pain. No vision changes were described at this time. She was ultimately diagnosed with
viral conjunctivitis and discharged with erythromycin ophthalmic ointment. She presents back to the ER in 08/27 with complaints of chest discomfort which started several hours prior to evaluation. Upon further exam she was found to have skin
changes on the left forehead consistent with herpes zoster, and Infectious Diseases is asked to comment upon further antiviral therapy. At this time she has been started on IV acyclovir.
#Shingles of the left V1 distribution
Appreciate ID input, continue IV acyclovir, ophthalmic prednisolone drops, oral prednisone
Patient having blurry vision of her left eye, consult ophthalmology
Discussed with Dr. Miranda, who will see patient
#Starvation ketosis vs DKA
Patient initially thought to be in DKA, and treated with insulin drip
Appreciate user interface designer input, patient has not eaten for more than 3 days, which is suspicious for starvation ketosis
D5 LR, trend serum bicarb and beta hydroxybutyric acid
#Atypical chest pain
Serial troponins are neg, 08/28 echo EF 25%, small to mod pericardial effusion
Appreciate cardiology input, who is recommending PPI for possible GERD
Obtain records from [facility]
#Recently diagnosed atrial fibrillation
Continue Porfirio Carrascorol XL
#Coronary artery disease
#History of MT status post PCI
Continue Brilinta and Eliquis
#Ischemic cardiomyopathy
Continue GDMT
#Diabetes
Senior Net Software Developer suspect starvation ketosis over diabetic ketoacidosis
Status post IV insulin drip, now on sliding scale insulin
Hold home Jardiance
#Hyponatremia
Check urine studies, TSH, a.m. cortisol
Fluid restrict, trend Na
#Essential hypertension
Continue valsartan, spironolactone, Toprol XL
#Hyperlipidemia
Continue statin
DVT prophylaxis�Eliquis
Full code
Total time spent to see the patient on the floor, examine the patient, review data and lab results, discuss treatment plan with patient, nursing staff around 52 minutes.
Physical Exam
General: Appears to not feel well, no acute distress
HEENT: Normocephalic, Atraumatic, EOMI, MMM
Left-sided conjunctival injection, edema of left eyelids
Respiratory: Clear to Auscultation bilaterally
Cardiac: Normal S1/S2, Regular Rate and Rhythm
GI: Soft, Nontender, Nondistended, Normal Bowel Sounds
Extremities: No Clubbing, Cyanosis, or Edema
Neuro: Nonfocal/Grossly Intact
Psych: Calm, Cooperative
Derm: Vesicular rash in a few left V1 distribution
Anticipated Discharge: > 48 hours
Subjective/Interval History
-
Date of Service: August 28, 2025
Patient reports left-sided head pain, and left blurry vision. Denies chest pain, denies shortness of breath. No fever, no vomiting.
Objective Data
-
Labs:
Laboratory Results
08/27/25 08/28/25 08/28/25
21:08 02:16 05:57
WBC 8.2
Hgb 13.8
Hct 39.9
Plt Count 205
PT
INR
APTT 31.6
Sodium 133 L 134 L 134 L
Potassium 4.7 4.5 4.2
Chloride 102 106 107
Carbon Dioxide 13 L* 12 L* 16 L
BUN 30 H 30 H 29 H
Creatinine 0.8 0.8 0.7
Glucose 144 H 145 H 126 H
Calcium 10.0 9.1 9.0
Total Bilirubin 2.0 H
AST 26
ALT 20
Alkaline Phosphatase 81
08/28/25
10:00
WBC
Hgb
Hct
Plt Count
PT Pending
INR Pending
APTT
Sodium
Potassium
Chloride
Carbon Dioxide
BUN
Creatinine
Glucose
Calcium
Total Bilirubin
AST
ALT
Alkaline Phosphatase
Vital Signs:
Vital Signs
Temp Pulse Resp BP Pulse Ox
98.3 F 76 17 135/78 97
08/28/25 07:55 08/28/25 08:55 08/28/25 08:15 08/28/25 08:55 08/28/25 08:15
I&O
08/27/25 08/28/25 08/29/25
06:59 06:59 06:59
Intake Total 350 / 350
Output Total 200 / 200
Balance 150 / 150
[2025-08-28 09:44] LABS: Glycohemoglobin (HgbA1c) 6.4 % (4.0-5.9)
[2025-08-28] MEDS: REGLAN 10 MG IV ×2 (09:51→20:21)
[2025-08-28 10:16] LABS: Glucose - Point of Care 119 mg/dl (70-99)
[2025-08-28 11:02] LABS: INR 1.39; PT 16.8 Sec (11.4-14.6)
[2025-08-28 11:17] LABS: Glucose - Point of Care 131 mg/dl (70-99)
[2025-08-28 11:32] LABS: Blood Urea Nitrogen 25 mg/dl (7-17); Calcium 8.2 mg/dl (8.4-10.2); Carbon Dioxide 17 mmol/L (22-30); Chloride 105 mmol/L (98-107); Estimated Creatinine Clearance 74 ml/min; Glucose 253 mg/dl (70-99); Potassium 4.8 mmol/L (3.5-5.1); Sodium 131 mmol/L (135-145); eGFR > 60.00
[2025-08-28] MEDS: DILAUDID 0.5 MG IV ×3 (11:40→20:24)
[2025-08-28] MEDS: D5LR 1000 IV ×2 (11:40→20:22)
[2025-08-28 11:44] LABS: Troponin I 0.029 ng/ml
--- NOTE | 2025-08-28 11:54 | PTCARENOTE ---
insulin gtt off, IV fluids changed per order, med with dilaudid for head/eye pain 7/10 scale. Room darkened. resting unless disturbed. Accucheck noted, pt notes would try to eat something, Dr. Donato aware of request to advance diet.
[2025-08-28 11:55] LABS: C-Reactive Protein < 5.00 mg/L (0.0-10.00)
[2025-08-28 11:56] LABS: Glucose - Point of Care 131 mg/dl (70-99)
[2025-08-28 12:05] LABS: D-Dimer < 0.27 ug/mlFEU (0.00-0.50)
--- NOTE | 2025-08-28 12:17 | CM ---
I.A: Completed By ABDIRASHID Enriquez.
Patient lives with Spouse in a [facility] with 1 STI and 14 STI. DME: None, No VN/PT, No STR.
PCP: Dr. Hakeem Isbell
Pharm: [facility] [address]
Patient has transport when ready. Anticipate Home No Needs.
[2025-08-28 12:26] LABS: TSH 0.61 uIU/ml (0.47-4.68)
--- NOTE | 2025-08-28 14:19 | PTCARENOTE ---
family bedside, pt resting. appetite poor, ate 1/2 container yogurt, IV fluids continue, skin warm and dry.
--- NOTE | 2025-08-28 14:26 | PTCARENOTE ---
family reports newest motorcycle designer Dr. Perez, [facility],
--- NOTE | 2025-08-28 14:29 | PN.DE.MGMTRT ---
Insulin Management
- -
08/28/2025 Diabetes Management Consult
55 year old patient admitted with chest pain, new onset afib found to be in DKA with normoglycemia. PMH DC, CAD, chf ef 40%, HTN. Prior to admission was taking Jardiance 10 mg daily. A1C on admission 6.4%, cr .7, eGFR >60.
Patient is awake alert and oriented, states she has had diabetes 7 months, has glucose monitor and was following with her primary doctor for diabetes care. On admission GAP was 18, glucose 144. most recent BMP has GAP at 11. Patient currently
receiving DKA insulin infusion. Will continue until GAP has closed times two. Will NOT resume Jardiance.
Discussed with nurse.
Will follow.
Diabetes History
- -
Type of Diabetes: 2
Pre-Admission Diabetes Regimen
08/27/25 08/28/25 08/28/25
21:08 02:16 05:57
Creatinine 0.8 0.8 0.7
08/28/25
11:09
Creatinine 0.7
Lab Results
Hemoglobin A1c 6.4 % (4.0-5.9) H 08/28/25 02:16
Insulin Pump Settings
IP Diabetes Regimen
08/27/25 08/28/25 08/28/25
21:08 00:54 02:14
Glucose 144 H
POC Glucose 126 H 148 H
08/28/25 08/28/25 08/28/25
02:16 03:27 04:28
Glucose 145 H
POC Glucose 144 H 146 H
08/28/25 08/28/25 08/28/25
05:39 05:57 06:30
Glucose 126 H
POC Glucose 127 H 112 H
08/28/25 08/28/25 08/28/25
07:47 08:53 09:59
Glucose
POC Glucose 142 H 124 H 119 H
08/28/25 08/28/25 08/28/25
11:06 11:09 11:45
Glucose 253 H
POC Glucose 131 H 131 H
Patient Education
[2025-08-28 17:11] LABS: Glucose - Point of Care 170 mg/dl (70-99)
[2025-08-28] MEDS: NOVOLOG FLEXPEN-MODERATE RESISTANCE 1 UNITS SC (17:24)
[2025-08-28] MEDS: PROTONIX 40 MG PO (17:25)
--- NOTE | 2025-08-28 17:59 | PTCARENOTE ---
urine obtained. med for pain. no other change in assessment. Overall notes perhaps feeling a little better, eye she feels is slightly less swollen. Appetite poor but willing to attempt meal.
[2025-08-28 18:17] LABS: Blood Urea Nitrogen 22 mg/dl (7-17); Calcium 8.9 mg/dl (8.4-10.2); Carbon Dioxide 19 mmol/L (22-30); Chloride 104 mmol/L (98-107); Estimated Creatinine Clearance 87 ml/min; Glucose 169 mg/dl (70-99); Potassium 4.2 mmol/L (3.5-5.1); Sodium 132 mmol/L (135-145); eGFR > 60.00
--- NOTE | 2025-08-28 20:00 | PTCARENOTE ---
patient received in bed, AAOX3, complaining of left eye pain, states its improving. Able to open more now per patient. NSR on monitor, trace edema noted around eye. Lungs clear, room air. Abdomen soft, complaints of nausea. Voiding clear yellow
urine. Left eye red, scabbed in left eye brown, blisters noted on left forehead. #20 g in LAC flushed and patent. #20 g in right wrist with IVf infusing as ordered. Call durán within reach
[2025-08-28] MEDS: NEURONTIN 300 MG PO (21:27)
[2025-08-28 21:42] LABS: Glucose - Point of Care 162 mg/dl (70-99)
[2025-08-29] VITALS (11 sets, daily range): BP systolic 107–130; BP diastolic 70–90; BMI 23.4
[2025-08-29] MEDS: ZOVIRAX INJECTION 112 MG IV ×3 (02:11→17:36)
[2025-08-29] MEDS: DILAUDID 0.5 MG IV ×2 (02:22→08:16)
--- NOTE | 2025-08-29 03:54 | PTCARENOTE ---
Patient reassessed, medicated for eye pain and headache. able to open left eye mor, swelling and drainage remain, labs drawn
[2025-08-29 04:57] LABS: Cortisol, Random 13.0 ug/dl
[2025-08-29 05:19] LABS: Blood Urea Nitrogen 21 mg/dl (7-17); Calcium 8.6 mg/dl (8.4-10.2); Carbon Dioxide 18 mmol/L (22-30); Chloride 106 mmol/L (98-107); Estimated Creatinine Clearance 87 ml/min; Glucose 158 mg/dl (70-99); Potassium 4.2 mmol/L (3.5-5.1); Sodium 133 mmol/L (135-145); eGFR > 60.00
[2025-08-29] MEDS: D5LR 1000 IV ×3 (05:50→21:03)
--- NOTE | 2025-08-29 07:39 | W.PN.CD ---
Today's Communication / Plan
-
Continue metabolic correction with insulin and hydration.
D/C ticagrelor.
Load with clopidogrel 600 mg x1 this afternoon.
Start clopidogrel 75 mg daily starting tomorrow.
Pantoprazole.
Impression / Plan
-
Impression/Plan: 55 y/o female that is typically seen at [facility] and with a history of HTN, HLD, MA s/p PCI complicated by ischemic cardiomyopathy/HFrEF and LV thrombus on apixaban admitted with chest pain, left V1 zoster outbreak and euglycemic DKA.
Primary ship's engineer: Davis Morton M.D.
#Chest pain
-Atypical, resolved.
-Initially treated with nitro gtt which has been weaned off.
-Normal troponins r/o ACS. Negative D-Dimer r/o PE/Acute aortic syndrome. Normal inflammatory markers makes pericarditis less likely.
-Several days of nausea/vomiting followed by chest pain makes GERD/esophagitis much more likely. No hematemesis, making subhash-green tear unlikely.
-We will try to get records from [facility].
-Pantoprazole 40 mg PO daily.
#CAD
-Chronic.
-Hx of MA with PCI.
-D/C ticagrelor.
-Load with clopidogrel 600 mg this afternoon and start 75 mg daily tomorrow given need for chronic therapeutic anticoagulation.
#Ischemic Cardiomyopathy/HFrEF
-Chronic. No signs of decompensated HF.
-Echocardiogram shows LVEF 25-30%.
-GDMT as hemodynamics will tolerate:
-Diuretics: None, no signs of volume overload.
-Beta alisa: Metoprolol succinate 25 mg PO daily.
-ACEI/ARB/ARNi: Valsartan 20 mg PO BID.
-MRA: Spironolactone on hold given acuity, dehydration.
-SGLT2i: Held due to euglycemic DKA. She is no longer a candidate for this.
-ICD: LVEF remains < 35%. Defer ICD placement to her primary ship's engineer.
#Atrial fibrillation
-New diagnosis, observed on telemetry.
-Rate control with metoprolol.
-CHADS2-VASc = 4 (CHF, DM, vascular disease, female gender).
-Therapeutic anticoagulation with apixaban.
#DM
-Chronic, currently in euglycemic DKA (likely due to SGLT2i) as well as starvation ketosis.
-Beta hydroxy butyrate elevated but improving with hydration, insulin.
-Hydration + insulin IV until gap is closed. Hold empagliflozin.
-HbA1c = 6.4%.
#Zoster
-Acute.
-ID consulted.
-Management per primary team, ID and optho.
Subjective/Interval History:
Seen by Pulm/CC, ID. Opthamology consulted.
AF seen on telemetry yesterday, converted to NSR.
Echo shows severely depressed systolic function. LVEF 25-30% with LAD wall motion abnormality.
Beta-hydroxy butyrate is improving but has not yet normalized.
No further chest pain.
Her primary issue remains her nausea.
DATA:
Transthoracic Echocardiogram, 08/28/2025:
SUMMARY
1. Severely reduced LV systolic function. Estimated LVEF 25-30%. Hypokinesis of the mid to apical anterior and septal segments, apical inferior segment, and apex.
2. No significant valve disease.
3. Small to moderate pericardial effusion. (Looks moderate in parasternal views, and small in subcostal view.).
4. No prior study for comparison.
Physical Exam
Vital Signs/Labs
Vital Signs
Temp Pulse Resp BP Pulse Ox
36.9 C 70 12 110/79 98
08/29/25 04:00 08/29/25 05:45 08/29/25 05:45 08/29/25 05:00 08/29/25 05:45
08/27/25 08/28/25 08/29/25
11:59 11:59 11:59
Actual Weight 58.8 kg 59.9 kg
08/28/25 02:16
PT 16.8 Sec (11.4-14.6) H 08/28/25 10:01
INR 1.39 08/28/25 10:01
APTT 31.6 Sec (23.4-35.0) 08/28/25 02:16
Magnesium 2.1 mg/dl (1.6-2.3) 08/28/25 02:16
TSH 0.61 uIU/ml (0.47-4.68) 08/28/25 11:09
LAB Results
08/27/25 08/27/25 08/28/25
21:08 22:38 02:16
Troponin I 0.017 0.024 D 0.031 D
08/28/25 08/28/25 08/28/25
10:01 11:09 16:00
Troponin I Cancelled 0.029 Cancelled
08/28/25
22:00
Troponin I Cancelled
Physical Exam
Constitutional: No acute distress and Comfortable
EENT: Anicteric and Moist mucous membranes
Cardiovascular: Rhythm & rate is regular, Pedal edema is absent, JVD pressure is normal, S1S2 is normal and Murmur/rub/gallop absent
Respiratory: Respiratory effort normal, Lungs clear to auscul., Wheeze Absent, Crackles Absent and Rhonchi Absent
GI: Soft, Distention absent, Flat, Non tender, Normal bowel sounds and Distention present
Neuro/Psych: AO x 3
Data Reviewed
-
Date of Service: August 29, 2025
Medical Decision Making: Reviewed Test Results, Independent Historian Assessment and Test Interpretation
EKG: Tracing Personally Visualized and interpreted and Report Reviewed by me
Echo: Tracing Personally Visualized and interpreted and Report Reviewed by me
X-Ray/CT/US/MRI/NUC/PET: Image Personally Visualized and interpreted and Report Reviewed by me
Medical Tests (PFT, Pathology etc): Report Reviewed by me
Labs: Labs Reviewed by me
Old Records: Reviewed
[2025-08-29] MEDS: DELTASONE 40 MG PO (08:12)
[2025-08-29] MEDS: PROTONIX 40 MG PO (08:12)
[2025-08-29] MEDS: TOPROL XL 25 MG PO (08:13)
[2025-08-29] MEDS: DIOVAN 20 MG PO ×2 (08:15→21:09)
[2025-08-29] MEDS: PEPCID 20 MG PO ×2 (08:15→21:04)
[2025-08-29] MEDS: REGLAN 10 MG IV (08:16)
[2025-08-29] MEDS: PRED FORTE 1% EYE DROPS 1 DROP OPHTH ×4 (08:26→21:10)
--- NOTE | 2025-08-29 08:26 | PN.DE.MGMTRT ---
Insulin Management
- -
08/29/2025 Diabetes Management Consult Follow up
55 year old patient admitted with chest pain, new onset afib found to be in DKA with normoglycemia. PMH PA, CAD, chf ef 40%, HTN. Prior to admission was taking Jardiance 10 mg daily. A1C on admission 6.4%, cr .6, eGFR >60 today.
Patient is awake alert and oriented, states she has had diabetes 7 months, has glucose monitor and was following with her primary doctor for diabetes care. On admission GAP was 18, glucose 144. Transitioned from DKA insulin infusion @ 11:30
08/28. Glucose up to 170 pre dinner, 162 @ HS and this AM 158 fasting. Will NOT resume Jardiance. Will start metformin 500 mg BID.
Discussed with nurse.
Will follow.
Diabetes History
- -
Type of Diabetes: 2
Pre-Admission Diabetes Regimen
08/28/25 08/28/25 08/29/25
11:09 17:37 03:34
Creatinine 0.7 0.6 0.6
Lab Results
Hemoglobin A1c 6.4 % (4.0-5.9) H 08/28/25 02:16
Insulin Pump Settings
IP Diabetes Regimen
08/28/25 08/28/25 08/28/25
08:53 09:59 11:06
Glucose
POC Glucose 124 H 119 H 131 H
08/28/25 08/28/25 08/28/25
11:09 11:45 17:00
Glucose 253 H
POC Glucose 131 H 170 H
08/28/25 08/28/25 08/29/25
17:37 21:31 03:34
Glucose 169 H 158 H
POC Glucose 162 H
Meal type: Lunch
Amount consumed: 15%
Patient Education
[2025-08-29] MEDS: POLYTRIM OPHTHALMIC SOLUTION 1 DROP OPHTH ×4 (08:28→21:10)
[2025-08-29] MEDS: NOVOLOG FLEXPEN-MODERATE RESISTANCE SC ×2 (08:34→17:39)
[2025-08-29 08:52] LABS: Glucose - Point of Care 148 mg/dl (70-99)
[2025-08-29] MEDS: GLUCOPHAGE 500 MG PO ×2 (08:58→17:47)
[2025-08-29] MEDS: ELIQUIS 5 MG PO ×2 (08:58→21:04)
--- NOTE | 2025-08-29 09:17 | W.PN.ID1 ---
Date of Service
Date of Service: August 29, 2025
Today's Communication
Continue acyclovir.
Assessment / Plan
Varicella zoster (V1 distribution)
Facial pain (secondary to above)
Possible left herpes ophthalmicus
Chest pain
CAD; Hx HI
CHF
Ischemic cardiomyopathy (EF ~ 40%)
HTN
HLD
Recommendations:
Continue with IV acyclovir.
Ophthalmology has evaluated the patient.
Follow creatinine while patient remains on IV acyclovir. Encourage fluid intake to prevent crystal nephropathy
Pain control. If persists, may need gabapentin or Lyrica.
Continue with supportive measures.
Chief Complaint
-: Other (Left V1 herpes zoster)
Subjective / Review of Systems
Patient seen and examined. Reports ongoing left forehead pain. Notes ongoing blurriness, although edema of the left eyelids somewhat improved today.
Vital Signs / Physical Exam
Vital Signs
Vital Signs
Temp Pulse Resp BP Pulse Ox
97.5 F 74 12 137/86 98
08/29/25 08:28 08/29/25 08:15 08/29/25 05:45 08/29/25 08:15 08/29/25 05:45
Physical Exam
Constitutional: No Acute Distress, Comfortable and Non-toxic
Eyes: Other (Ongoing edema of the left upper and lower eyelids.)
Cardiovascular: S1/S2; Negative S3/S4
Pulmonary: Clear; Negative Wheezes or Rales
Gastrointestinal: Soft, Non Tender and Non Distended
Extremities: Negative Edema, Cyanosis or Erythema
Skin: Rash (Vesicular rash left forehead in V1 distribution. No crusting as of yet.)
Neurological: Awake and Alert
Psychological: Calm
Objective Data
Lab Data
Lab Results
08/28/25 02:16
PT 16.8 Sec (11.4-14.6) H 08/28/25 10:01
INR 1.39 08/28/25 10:01
APTT 31.6 Sec (23.4-35.0) 08/28/25 02:16
Estimated Creat Clear 87 ml/min 08/29/25 03:34
Lactic Acid 1.5 mmol/L (0.7-2.0) 08/27/25 22:38
Total Bilirubin 2.0 mg/dl (0.2-1.3) H 08/27/25 21:08
AST 26 U/L (14-36) 08/27/25 21:08
ALT 20 U/L (0-35) 08/27/25 21:08
Alkaline Phosphatase 81 U/L (38-126) 08/27/25 21:08
C-Reactive Protein < 5.00 mg/L (0.0-10.00) 08/28/25 11:09
Most recent labs reviewed.
Imaging:
08/28/2025 CXR (portable): no focal airspace disease. No pleural effusion or pneumothorax. Please see full dictation for additional detail.
08/25/2025 CT facial bones with IV contrast: mastoid air cells and middle ear appear patent bilaterally. No CT evidence to suggest otitis externa. No evidence for focal collection to suggest an abscess. No significant cellulitis evident by CT.
Please see full dictation for additional detail.
--- NOTE | 2025-08-29 09:35 | W.PN.HOSP.TC ---
Today's Communication/Plan
-
see bold
Assessment / Plan
Assessment / Plan
HPI: 55-year-old female presented to [facility] on 08/25 with complaints of left ear pain which started 1 week prior. Prior to her ER visit she had been placed on amoxicillin by her PCP, with no improvement in pain. She was then seen at an
urgent care and transitioned to Augmentin and methylprednisolone on 08/24. Despite these modalities she continued to have progressive left face and left ear pain. No vision changes were described at this time. She was ultimately diagnosed with
viral conjunctivitis and discharged with erythromycin ophthalmic ointment. She presents back to the ER in 08/27 with complaints of chest discomfort which started several hours prior to evaluation. Upon further exam she was found to have skin
changes on the left forehead consistent with herpes zoster, and Infectious Diseases is asked to comment upon further antiviral therapy. At this time she has been started on IV acyclovir.
#Shingles of the left V1 distribution
Appreciate ID input, continue IV acyclovir, ophthalmic prednisolone drops, oral prednisone
Patient having blurry vision of her left eye
08/[address] Miranda, who states there is no retinal necrosis, and recommends continuing current management
Follow-up with ophthalmology upon discharge
#Probable starvation ketosis, less likely diabetic ketoacidosis
Patient initially thought to be in DKA, and treated with insulin drip
Appreciate knife grinder input, patient has not eaten for more than 3-5 days and her pH > 7.3, which is more consistent for starvation ketosis
D5 LR, trend serum bicarb and beta hydroxybutyric acid
#Persistent nausea
Appreciate GI input, who suspects nausea is related to vertigo as it is occurring with movement
Trial of meclizine
Continue antiemetics, monitor QTc interval
#Atypical chest pain
Serial troponins are neg, 08/28 echo EF 25%, small to mod pericardial effusion
Appreciate cardiology input, who is recommending PPI for possible GERD
Obtain records from [facility]
#Recently diagnosed atrial fibrillation
Continue Eliquis, Toprol XL
#Coronary artery disease
#History of CO status post PCI
Cardiology transitioned Brilinta to Plavix
Continue Eliquis
#Ischemic cardiomyopathy
Continue GDMT
#Diabetes, hemoglobin A1c 6.4
Head Men'S Golf Coach suspects starvation ketosis over diabetic ketoacidosis
Status post IV insulin drip, now on sliding scale insulin
Diabetes nurse practitioner recommends permanent discontinuation of Jardiance
Continue insulin management as per diabetes nurse practitioner
#Hyponatremia
Improving, continue restriction
#Essential hypertension
Continue valsartan, spironolactone, Toprol XL
#Hyperlipidemia
Continue statin
DVT prophylaxis�Eliquis
Full code
Total time spent to see the patient on the floor, examine the patient, review data and lab results, discuss treatment plan with patient, nursing staff around 51 minutes.
Physical Exam
General: Appears to not feel well, no acute distress
HEENT: Normocephalic, Atraumatic, EOMI, MMM
Left-sided conjunctival injection, edema of left eyelids
Respiratory: Clear to Auscultation bilaterally
Cardiac: Normal S1/S2, Regular Rate and Rhythm
GI: Soft, Nontender, Nondistended, Normal Bowel Sounds
Extremities: No Clubbing, Cyanosis, or Edema
Neuro: Nonfocal/Grossly Intact
Psych: Calm, Cooperative
Derm: Vesicular rash in a few left V1 distribution
Anticipated Discharge: > 48 hours
Subjective/Interval History
-
Date of Service: August 29, 2025
Patient reports her left head/eye pain is mildly improved. She continues to be severely nauseous, especially with movement. She has not had been able to tolerate any food, she is having sips of liquids. She states that it comes back up. No fever.
Objective Data
-
Labs:
Laboratory Results
08/29/25 08/29/25
03:34 08:56
Sodium 133 L Pending
Potassium 4.2 Pending
Chloride 106 Pending
Carbon Dioxide 18 L Pending
BUN 21 H Pending
Creatinine 0.6 Pending
Glucose 158 H Pending
Calcium 8.6 Pending
Vital Signs:
Vital Signs
Temp Pulse Resp BP Pulse Ox
97.5 F 74 12 137/86 98
08/29/25 08:28 08/29/25 08:15 08/29/25 05:45 08/29/25 08:15 08/29/25 05:45
I&O
08/28/25 08/29/25 08/30/25
06:59 06:59 06:59
Intake Total 350 / 350 3684.5 / 3684.5
Output Total 200 / 200 900 / 900
Balance 150 / 150 2784.5 / 2784.5
--- NOTE | 2025-08-29 10:02 | W.PN.PUL3 ---
Today's Communication / Plan
-
Antiviral medication per ID
Pain medication
Outpatient ophthalmology evaluation -I discussed the case today with Dr. Miranda and there is no current concern for acute retinal necrosis; she will need extended taper of the topical steroid
Trend serum creatinine while on IV acyclovir
Continue with topical steroids + PO prednisone
Wean PO prednisone as she improves
Continue gabapentin HS
Supportive measures
D5�LR while encouraging oral intake; stop date to be placed onto the fluids given her history of HFrEF
Plavix being started today per cardiology with ticagrelor being stopped; continue Eliquis
Maintain SpO2 >90-94%
Patient was downgraded to IMU level of care on 08/28. No additional recommendations at this time. Pulmonary service will now sign off. Please reconsult if there are any additional questions/concerns, or if patient's respiratory status
deteriorates.
Assessment
-
Assessment: 55-year-old female non-smoker with a past medical history of CAD s/p PCI, ICM/HFrEF, reported history of LV thrombus on Eliquis, DM type II, hypertension and hypercholesterolemia who presented with chest pain, left eye pain/redness and
recurrent headaches. She has been having intermittent chest pressure for several months and seem to resolve 2 weeks ago. Her chest pain then recurred prior to arrival which was sharp, substernal and associate with nausea. She has had a
significant headache and been vomiting with reduced oral intake since Monday. On this past Monday (08/26/2025), she started to have left eye redness with lesions popping up. She does have a history of chickenpox, and has never had the shingles
vaccine. She does have some blurriness in the left eye. Her headache is significant and it is worsened with loud noises and with light. In the ER she was afebrile with pulse rate 106, respiratory rate 20, BP 122/86 and SpO2 95% on room air. Labs
showed normal WBC at 8.7, Hb 15.7, D-dimer negative at <0.27, pH showing mild metabolic acidosis at 7.34 with pCO2 30, serum bicarbonate level was initially 13, with sodium 133, glucose 144, T. bili 2.0, troponin negative at 0.017, and
beta-hydroxybutyrate elevated at 3.79. CT head showed no acute intracranial abnormality. CT facial bones showed no focal collection to suggest an abscess and no significant cellulitis. CXR showed no acute cardiopulmonary abnormality. She was
given 500 cc bolus of NS 0.9% in the ER, as well as aspirin, acetaminophen and started on nitroglycerin for her chest discomfort. Given that she is on Jardiance, there was concern for euglycemic DKA; insulin drip was started and she was admitted to
the ICU for further care. Group Work Program Aide service consulted for additional management/recommendations.
Chronic conditions SUPERVISOR INSPECTING: CAD s/p PCI, ICM/HFrEF, ?LV thrombus on Eliquis, DM type II, hypertension, hypercholesterolemia, chickenpox (as a child)
Impression:
#Starvation ketoacidosis - now resolved
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
#Acute neuritis due to herpes zoster
#Atypical chest pain � now resolved
#CAD with Hx of PCI/stent on brilinta
#HFrEF/ICM - not in an acute exacerbation
#A-fib currently in NSR
#DM type II
#HTN
#Hypercholesterolemia
Plan:
- Ketoacidosis now resolved; initially her diagnosis was more consistent with starvation ketoacidosis as opposed to DKA as her pH was >7.3 and she had not been eating/drinking for >3-5 days, with reduced PO intake for up to 7 days - insulin gtt
stopped, and she was treated with dextrose containing fluids as well as crystalloids
- Still on D5-LR - -> decrease rate to 75cc/hr and encourage PO intake while trending serum HCO3 and BOHB
- Monitor for signs of acute pulmonary edema given her history of HFrEF
- Patient states that the rash around her left eye started this past Monday (08/27)� treatment is indicated given that she presented within 72 hours of onset
- Varicella zoster serology + PCR already ordered and is pending
- Ophthalmology consult placed - Dr. Miranda spoke to the admitting hospitalist who also recommended steroid eyedrops and patient also started on polymyxin/trimethoprim eyedrops
- I also spoke with Dr. Miranda, who agrees with the current management plan. He will arrange for outpatient office follow-up. No current concern for acute retinal necrosis
- Continue with IV acyclovir + prednisone
- Continue with antiviral therapy until all lesions have crusted
- Monitor for development of secondary bacterial infection
- Monitor her lesions to assure they are not progressing
- Pain control for acute neuritis (oral prednisone and short acting opioids); also continue gabapentin at nighttime
- If patient develops unrelenting pain, she may need neural blockade with bupivacaine
- I asked the to bring in her migraine medication from home (Nurtec)
- Will give trial of rizatriptan to see if this improves her nausea as this could very well be related to migraine
- Continue with antiemetics as needed; she may need to get Reglan versus Zofran prior to her trying to eat given how significant her nausea is
- Also being given a trial of meclizine as she may be having vertigo symptoms (she has had dizziness for many years)
- She has been weaned off nitroglycerin drip; her chest pain appeared to be atypical and given her troponins had been negative this is unlikely to be cardiac related
- Cardiology consulted and PPI recommended given possible GI etiology to her chest discomfort
- Continue with Eliquis; ticagrelor is being transitioned to Plavix per cardiology
- Medical records being requested
- Maintain SpO2 >90-94% using supplemental O2 as needed
- Aspiration precautions
- prn nebulized bronchodilators - not currently bronchospastic
- Incentive spirometer encouraged 10x per hour for at least 4 hrs a day
- Maintain MAP>65
- Replete electrolytes with K>4, Mg>2
- Maintain euglycemia with goal BG 140-180; HbA1C: 6.4 on 08/28/2025
- Trend H/H and transfuse if needed to keep Hb>7g/dL; keep plt>20k, unless there is concern for bleeding then keep plt>50k
- Anti-emetics as needed; monitor QTc with goal <500ms (ideally <460ms)
- DVT ppx: Eliquis
Patient was downgraded to IMU level of care on 08/28. No additional recommendations at this time. Pulmonary service will now sign off. Thank you for allowing us to be involved in the care of this patient. Please reconsult if there are any
additional questions/concerns, or if patient's respiratory status deteriorates.
Total time spent today was 57 minutes for this encounter. Time includes reviewing laboratory test/imaging results, reviewing pertinent medical records, obtaining and reviewing medical history, performing an appropriate exam, ordering medications,
tests and procedures. Time also includes documentation of this encounter, coordinating patient care and communicating with other healthcare professionals. Total time does not include separately billed tests performed on this date of service.
Subjective Data
-
Date of Service:
Date of Service: August 29, 2025
Chief Complaint: Pulmonary Follow Up
Subjective:
Patient seen this morning. Afebrile overnight. at bedside. Still feels very nauseous with minimal activity. Dilaudid is helping her headache and she actually got some sleep last night. Her left eye vision is improving with less swelling
of her eyelids.
Review of Systems
General: Other (Negative unless mentioned above)
Objective Data
Data Reviewed
Vital Signs / I&O / Oxygen:
Vital Signs
Temp Pulse Resp BP Pulse Ox
97.5 F 74 12 137/86 98
08/29/25 08:28 08/29/25 08:15 08/29/25 05:45 08/29/25 08:15 08/29/25 05:45
Intake and Output
08/28/25 08/29/25 08/30/25
06:59 06:59 06:59
Intake Total 350 / 350 3684.5 / 3684.5
Output Total 200 / 200 900 / 900
Balance 150 / 150 2784.5 / 2784.5
SaO2 98
Physical Exam
General: Respiratory Distress (negative) and Other (Nauseous)
HEENT: Normocephalic, Anicteric, Other (Left periorbital papular/vesicular lesions, crusting seen around lesion superior to her eyelid ) and Other (Swelling + erythema of left-sided eyelids (superior and inferior))
Cardiovascular: S1-S2 and Peripheral Edema (negative)
Respiratory: Clear, Wheeze (negative), Crackles (negative), Rhonchi (negative) and Non-Labored Respirations
GI: Soft, Non Distended, Non Tender and Normal Bowel Sounds
Neurology: Awake, Alert, Oriented and Tremors (negative)
Skin: Warm, Dry, Cyanosis (negative) and Jaundice (negative)
Labs/Micro/Reports
Lab Data
08/28/25 02:16
Laboratory Results
08/28/25
10:01
PT 16.8 H
INR 1.39
--- NOTE | 2025-08-29 11:13 | CM ---
F/U: Patient still being monitored, she is continue with IV acyclovir, Ophthalmology has evaluated the patient, they are following creatinine while patient remains on IV acyclovir, watching pain control as well. Otherwise, patient is Independent
with all ADL's at home. PLAN: Anticipate Home No Needs.
[2025-08-29] MEDS: ANTIVERT 25 MG PO (14:09)
[2025-08-29] MEDS: NOVOLOG FLEXPEN-MODERATE RESISTANCE 3 UNITS SC (14:11)
[2025-08-29 14:25] LABS: Glucose - Point of Care 203 mg/dl (70-99)
[2025-08-29] MEDS: MAXALT MLT (ORALLY DISINTEGRATING) 10 MG PO (14:27)
--- NOTE | 2025-08-29 14:30 | CON.GI ---
Addendum entered and electronically signed by Shonna Olivas DO 08/29/25 16:52:
The patient was seen and examined by me independently in collaboration with the nurse practitioner.
Past medical history/social history/medications/allergies/family history reviewed.
Lab data and imaging data reviewed.
Drea Li is a 55 y.o. female w/ pmhx CAD s/p PCI, ICM/ HFrEF, hx LV thrombus on eliquis, DM2, HTN, HLD who was initially admitted with chest pain, left occular pain, left ear pain and recurrent headaches found to have herpes zoster, started on IV
acyclovir. GI is consulted for intractable nausea and vomiting. Upon evaluation, patient reports little appetite but feels she is only nauseous when she becomes dizzy and this occurs with positional changes, when walking to the bathroom. Her
is at bedside, states she ate candy without issue yesterday, only had nausea and vomiting after she later got up to walk to the bathroom. CT head negative for acute pathology
I feel her nausea/vomiting is 2/2 vestibular dysfunction given positional nature of symptoms vs. 2/2 ocular zoster as nausea is commonly seen with this. Recommend neurologic workup if no significnat improvement, consider MRI brain. GI will sign off
for now, please call back if persistent symptoms with negative workup for other causes
Original Note:
Consultation
-
Date/Time Consultation Requested: 08/29/25 1245
Date/Time Consultation Performed: 08/29/25 1515
Requesting Provider: Ruben Huizar MD
Performing Provider: SHAMIKA Santillan, Kaye Olivas DO
Reason for Consultation: nausea
Medical History
Chief Complaint / HPI
Chief Complaint: nausea/vomiting
History of Present Illness:
Pt is a 55yo with hx CAD with prior [place] in 12/2024 and PCI with ticagrelor use complicated by ischemic CM, HFpEF, LV thrombus on Eliquis with treatment at [facility], hyperlipidemia, IDDM, and prior chicken pox as child. She is note with
multiple complaint including chest pain and per cardiology notes she had recent repeat stable cath. She was also noted with ear pain with treatment with Augmentin then steroids with progression to facial pain with nausea, vomiting and wt loss.
After admission she was seen by ID and recommended IV Acyclovir and Ophthalmology eval. Asked to see for nausea and vomiting with wt loss.
In review with patient and family nausea and vomiting are associated movement. She also noted with headache and some photophobia. She has been started on Phenergan, Zofran and now meclizine and per patient and family actually feeling slightly
improved than on admission. She otherwise denies dysphagia, GERD, hematemesis, diarrhea, constipation or rectal bleeding. No hx EGD or colonoscopy in past.
Past Medical History
Past Medical History: CAD, CHF, Hypercholesterolemia, NIDDM, [place] and Other (chickenpox as child )
Past Surgical History: Cardiac (PCI with stenting )
Social History
Tobacco: Non-Smoker
Alcohol: None
Drug: None
Personal:
Living: With Family
Employment: Retired
Family History
Family History: Other (no family hx GI problem)
Allergies / Home Medications
Allergy/AdvReac Type Severity Reaction Status Date / Time
No Known Allergies Allergy Verified 08/27/25 20:46
�Medication �Instructions �Recorded
erythromycin 5 mg/gram (0.5 %) eye 1 applic ophthalmic (eye) Q6H #3.5 08/25/25
ointment grams
apixaban 5 mg tablet (Eliquis) 5 mg PO BID Blood Clot 08/28/25
Prevention/Tx
atorvastatin 40 mg tablet 40 mg PO HS High Cholesterol 08/28/25
empagliflozin 10 mg tablet 10 mg PO DAILY Heart Failure 08/28/25
(Jardiance)
famotidine 20 mg tablet 20 mg PO BID Gastrointestinal Issue 08/28/25
metoprolol succinate 25 mg 25 mg PO HS Heart Failure 08/28/25
tablet,extended release 24 hr
spironolactone 25 mg tablet 25 mg PO DAILY Fluid 08/28/25
Retention/Swelling
ticagrelor 90 mg tablet (Brilinta) 90 mg PO BID Blood Clot 08/28/25
Prevention/Tx
valsartan 40 mg tablet 20 mg PO BID Heart Failure 08/28/25
Review of Systems
-
History Source: Patient and Family
Constitutional: Reports Weight Loss and Fatigue
EENT: Reports No Symptoms
Respiratory: Reports No Symptoms
Cardiac: Reports No Symptoms
Abdomen/GI: Reports Nausea and Vomiting (worse with movement )
: Reports No Symptoms
Musculoskeletal: Reports No Symptoms
Skin: Reports No Symptoms
Neurological: Reports Weakness
Endocrine: Reports No Symptoms
Hematologic/Lymphatic: Reports No Symptoms
Vital Signs
Temp Pulse Resp BP Pulse Ox
97.5 F 74 12 137/86 98
08/29/25 08:28 08/29/25 08:15 08/29/25 05:45 08/29/25 08:15 08/29/25 05:45
Physical Exam
Exam
General: Well Developed, Well Nourished and No Apparent Distress
HEENT: Normocephalic, Anicteric and Other (left eye swelling, redness papular rash )
Respiratory: Clear
Cardiac: Regular Rhythm
GI: Soft, Non Tender and Non Distended
Musculoskeletal: No Clubbing and No Cyanosis
Skin: Warm and Dry
Neuro: Awake, Alert and AO x 3
Psych: Calm
Results
WBC 8.2 10^3/uL (4.8-10.8) 08/28/25 02:16
Hgb 13.8 g/dL (12.0-16.0) 08/28/25 02:16
Hct 39.9 % (37.0-47.0) 08/28/25 02:16
MCV 95.0 fL (81.0-99.0) 08/28/25 02:16
Plt Count 205 10^3/uL (130-400) 08/28/25 02:16
Absolute Neuts (auto) 8.2 10^3/uL (1.4-6.5) H 08/27/25 21:08
PT 16.8 Sec (11.4-14.6) H 08/28/25 10:01
INR 1.39 08/28/25 10:01
APTT 31.6 Sec (23.4-35.0) 08/28/25 02:16
Sodium 133 mmol/L (135-145) L 08/29/25 03:34
Potassium 4.2 mmol/L (3.5-5.1) 08/29/25 03:34
Chloride 106 mmol/L (98-107) 08/29/25 03:34
Carbon Dioxide 18 mmol/L (22-30) L 08/29/25 03:34
BUN 21 mg/dl (7-17) H 08/29/25 03:34
Creatinine 0.6 mg/dL (0.6-1.0) 08/29/25 03:34
Calcium 8.6 mg/dl (8.4-10.2) 08/29/25 03:34
Total Bilirubin 2.0 mg/dl (0.2-1.3) H 08/27/25 21:08
AST 26 U/L (14-36) 08/27/25 21:08
ALT 20 U/L (0-35) 08/27/25 21:08
Alkaline Phosphatase 81 U/L (38-126) 08/27/25 21:08
Diagnostic Image Results:
08/25/25 CT Facial Bones W/ Iv Contrast
IMPRESSION: The mastoid air cells and middle ears appear patent bilaterally. No CT evidence to suggest otitis externa.
No evidence for focal collection to suggest an abscess. No significant cellulitis is evident by CT.
Note is made of moderate degenerative change of the left temporomandibular joint with only minimal degenerative change of the right temporomandibular joint.
Prior GI Procedures:
EGD:
none
Colonoscopy:
none
Assessment / Plan
-
Pt is a 55yo with hx CAD with prior [place] in 12/2024 and PCI with ticagrelor use complicated by ischemic CM, HFpEF, LV thrombus on Eliquis with treatment at [facility], hyperlipidemia, IDDM, and prior chicken pox as child. She is note with
multiple complaint including chest pain and per cardiology notes she had recent repeat stable cath. She was also noted with ear pain with treatment with Augmentin then steroids with progression to facial pain with nausea, vomiting and wt loss.
After admission she was seen by ID and recommended IV Acyclovir and Ophthalmology eval. Asked to see for nausea and vomiting with wt loss. In review with patient and family nausea and vomiting are associated movement. She also noted with
headache and some photophobia. She has been started on Phenergan, Zofran and now meclizine and per patient and family actually feeling slightly improved than on admission. No hx EGD or colonoscopy in past.
-nausea/vomiting
-ophthalmic zoster with facial pain
-chest pain
-concern for starvation ketoacidosis on admission
other med problems:
- CAD with prior [place] in 12/2024 and PCI with ticagrelor use complicated by ischemic CM, HFpEF, LV thrombus on Eliquis with treatment at [facility], hyperlipidemia, IDDM, and prior chicken pox as child
PLAN:
Etiology of nausea/vomiting related Zoster as can be part of prodrome period
symptoms associate with movement which likely related to underlying neuro process with Zoster
currently on Zofran, Phenergan PRN and Meclizine added
cont Acyclovir per IR
pt currently with some improvement on medication regiment per family
monitor intakes and for any further episode of vomiting
if not improving consider neuro eval
remains on Plavix(with load given today per cardiology) and Eliquis
family updated
-
-
Thank you for consultation and allowing me to participate in the patient's care. Please call the workers compensation specialist GI physician during the after hours with any questions or concerns.
[2025-08-29 17:48] LABS: Glucose - Point of Care 138 mg/dl (70-99)
[2025-08-29] MEDS: PLAVIX 600 MG PO (17:51)
--- NOTE | 2025-08-29 20:00 | PTCARENOTE ---
on assessment pt AAOx3, denies pain and SOB at this time, COREAS, ambulates to bathroom, SR on the monitor, RA 98%, no N/V at this time pt states 'feeling better', voids in toilet, L eye swollen but pt can open and states she can see better through the
L eye now, D5LR running at 75ml/hr, call durán in reach
--- NOTE | 2025-08-29 20:05 | SUR.OPER ---
AAO x 3 At this time denies pain, Denies nausea. States of ' I feel a lot better ' Able to tolerate dinner
[2025-08-29] MEDS: NEURONTIN 300 MG PO (21:04)
[2025-08-29 21:34] LABS: Glucose - Point of Care 139 mg/dl (70-99)
[2025-08-30] VITALS (12 sets, daily range): BP systolic 92–125; BP diastolic 55–82; BMI 22.5
[2025-08-30] MEDS: ZOVIRAX INJECTION 112 MG IV ×3 (02:14→16:54)
[2025-08-30 02:50] LABS: Hematocrit 40.2 % (37.0-47.0); Hemoglobin 13.7 g/dL (12.0-16.0); Mean Corp Hgb Conc. 34.1 g/dL (33.0-37.0); Mean Corpuscular Volume 92.8 fL (81.0-99.0); Platelet Count 217 10^3/uL (130-400); Red Cell Dist. Width 12.2 % (11.5-14.5)
[2025-08-30 03:14] LABS: Blood Urea Nitrogen 18 mg/dl (7-17); Calcium 8.7 mg/dl (8.4-10.2); Carbon Dioxide 23 mmol/L (22-30); Chloride 104 mmol/L (98-107); Estimated Creatinine Clearance 74 ml/min; Glucose 129 mg/dl (70-99); Magnesium 2.0 mg/dl (1.6-2.3); Potassium 3.4 mmol/L (3.5-5.1); Sodium 137 mmol/L (135-145); eGFR > 60.00
--- NOTE | 2025-08-30 03:46 | PTCARENOTE ---
on reassessment pt noted to be going in and out of AFIB on the monitor, pt denies chest pain and SOB but c/o palpations at times, EKG completed and read Afib with RVR, INSTRUMENTATION ENGINEERING TECHNICIAN paged and made aware of EKG and morning labs, pulse ox 95% RA and BP 118/76
[2025-08-30] MEDS: KCL 40 MEQ PO (04:05)
--- NOTE | 2025-08-30 07:55 | W.PN.HOSP.TC ---
Today's Communication/Plan
-
Encourage oral intake
Stable for telemetry
Assessment / Plan
Assessment / Plan
HPI: 55-year-old female presented to [facility] on 08/25 with complaints of left ear pain which started 1 week prior. Prior to her ER visit she had been placed on amoxicillin by her PCP, with no improvement in pain. She was then seen at an
urgent care and transitioned to Augmentin and methylprednisolone on 08/24. Despite these modalities she continued to have progressive left face and left ear pain. No vision changes were described at this time. She was ultimately diagnosed with
viral conjunctivitis and discharged with erythromycin ophthalmic ointment. She presents back to the ER in 08/27 with complaints of chest discomfort which started several hours prior to evaluation. Upon further exam she was found to have skin
changes on the left forehead consistent with herpes zoster, and Infectious Diseases is asked to comment upon further antiviral therapy. At this time she has been started on IV acyclovir.
#Shingles of the left V1 distribution
Appreciate ID input, continue IV acyclovir, ophthalmic prednisolone drops, oral prednisone
Patient having blurry vision of her left eye
08/[address] Miranda, who states there is no retinal necrosis, and recommends continuing current management
Follow-up with ophthalmology upon discharge
#Probable starvation ketosis, less likely diabetic ketoacidosis
Patient initially thought to be in DKA, and treated with insulin drip
Appreciate director talent acquisition input, patient has not eaten for more than 3-5 days and her pH > 7.3, which is more consistent for starvation ketosis
D5 LR, trend serum bicarb and beta hydroxybutyric acid
#Persistent nausea
#Intermittent vertigo
Appreciate GI input, who suspects nausea is related to vertigo as it is occurring with movement
Improving on meclizine and antiemetics
Encourage oral intake
#Atypical chest pain
Serial troponins are neg, 08/28 echo EF 25%, small to mod pericardial effusion
Appreciate cardiology input, who is recommending PPI for possible GERD
Obtain records from [facility]
#Recently diagnosed atrial fibrillation
Continue Eliquis, Toprol XL
#Coronary artery disease
#History of HI status post PCI
Cardiology transitioned Brilinta to Plavix
Continue Eliquis
#Ischemic cardiomyopathy
Continue GDMT
#Diabetes, hemoglobin A1c 6.4
Shredder Tender Peat suspects starvation ketosis over diabetic ketoacidosis
Status post IV insulin drip, now on sliding scale insulin
Diabetes nurse practitioner recommends permanent discontinuation of Jardiance
Continue insulin management as per diabetes nurse practitioner
#Hyponatremia
Improving
#Essential hypertension
Continue valsartan, spironolactone, Toprol XL
#Hyperlipidemia
Continue statin
DVT prophylaxis�Eliquis
Full code
Total time spent to see the patient on the floor, examine the patient, review data and lab results, discuss treatment plan with patient, nursing staff around 41 minutes.
Physical Exam
General: Appears to not feel well, no acute distress
HEENT: Normocephalic, Atraumatic, EOMI, MMM
Left-sided conjunctival injection, edema of left eyelids
Respiratory: Clear to Auscultation bilaterally
Cardiac: Normal S1/S2, Regular Rate and Rhythm
GI: Soft, Nontender, Nondistended, Normal Bowel Sounds
Extremities: No Clubbing, Cyanosis, or Edema
Neuro: Nonfocal/Grossly Intact
Psych: Calm, Cooperative
Derm: Vesicular rash in a few left V1 distribution
Anticipated Discharge: 24 - 48 hours
Subjective/Interval History
-
Date of Service: August 30, 2025
Patient's nausea & vertigo have resolved. She reports feeling much better. Headache also resolved. She is lightheaded. Denies chest pain, denies shortness of breath. No fever, no vomiting.
Objective Data
-
Labs:
Laboratory Results
08/30/25
02:23
WBC 7.7
Hgb 13.7
Hct 40.2
Plt Count 217
Sodium 137
Potassium 3.4 L
Chloride 104
Carbon Dioxide 23
BUN 18 H
Creatinine 0.7
Glucose 129 H
Calcium 8.7
Vital Signs:
Vital Signs
Temp Pulse Resp BP Pulse Ox
98.8 F 75 12 92/66 96
08/29/25 23:51 08/30/25 07:30 08/29/25 10:15 08/30/25 06:00 08/30/25 07:30
I&O
08/29/25 08/30/25 08/31/25
06:59 06:59 06:59
Intake Total 3684.5 / 3684.5 1440 / 1515 75 /
Output Total 900 / 900 1850 / 1850
Balance 2784.5 / 2784.5 -410 / -335 / 75
[2025-08-30] MEDS: PRED FORTE 1% EYE DROPS 1 DROP OPHTH ×4 (08:57→22:36)
[2025-08-30] MEDS: GLUCOPHAGE 500 MG PO ×2 (08:58→16:54)
[2025-08-30] MEDS: POLYTRIM OPHTHALMIC SOLUTION 1 DROP OPHTH ×4 (08:58→22:35)
[2025-08-30] MEDS: TOPROL XL 25 MG PO ×2 (08:58→20:11)
[2025-08-30] MEDS: PEPCID 20 MG PO ×2 (08:58→20:11)
[2025-08-30] MEDS: PLAVIX 75 MG PO (08:59)
[2025-08-30] MEDS: DIOVAN 20 MG PO ×2 (08:59→20:09)
[2025-08-30] MEDS: ELIQUIS 5 MG PO ×2 (08:59→20:11)
[2025-08-30] MEDS: DELTASONE 40 MG PO (08:59)
[2025-08-30] MEDS: DILAUDID 0.5 MG IV ×2 (09:00→22:31)
[2025-08-30] MEDS: PROTONIX 40 MG PO (09:00)
[2025-08-30 09:09] LABS: Glucose - Point of Care 107 mg/dl (70-99)
[2025-08-30] MEDS: NOVOLOG FLEXPEN-MODERATE RESISTANCE SC (09:09)
[2025-08-30] MEDS: D5LR 1000 IV (09:10)
--- NOTE | 2025-08-30 12:19 | W.PN.CD ---
Today's Communication / Plan
-
titrate metoprolol
trend tele for A fib
Impression / Plan
-
Impression/Plan: 55 y/o female that is typically seen at [facility] and with a history of HTN, HLD, [place] s/p PCI complicated by ischemic cardiomyopathy/HFrEF and LV thrombus on apixaban admitted with chest pain, left V1 zoster outbreak and euglycemic DKA.
Primary cardiology rn: Davis Morton M.D.
#Chest pain
-Atypical, resolved.
-Initially treated with nitro gtt which has been weaned off.
-Normal troponins r/o ACS. Negative D-Dimer r/o PE/Acute aortic syndrome. Normal inflammatory markers makes pericarditis less likely.
-Several days of nausea/vomiting followed by chest pain makes GERD/esophagitis much more likely. No hematemesis, making subhash-green tear unlikely.
-Pantoprazole 40 mg PO daily.
#CAD
-Chronic.
-Hx of [place] with PCI.
-D/C ticagrelor.
-with new A fib, plan will be apixaban/clopidogrel
#Ischemic Cardiomyopathy/HFrEF
-Chronic. No signs of decompensated HF.
-Echocardiogram shows LVEF 25-30%.
-GDMT as hemodynamics will tolerate:
-Diuretics: None, no signs of volume overload.
-Beta alisa: Metoprolol succinate 25 mg: increase to twice daily
-ACEI/ARB/ARNi: Valsartan 20 mg PO BID.
-MRA: Spironolactone on hold given acuity, dehydration.
-SGLT2i: stopped due to euglycemic DKA. She is no longer a candidate for this.
-ICD: LVEF remains < 35%. Defer ICD placement to her primary cardiology rn.
#Atrial fibrillation, paroxysmal
-New diagnosis, observed on telemetry. Mostly in sinus now.
-Toprol XL.
-CHADS2-VASc = 4 (CHF, DM, vascular disease, female gender).
-Therapeutic anticoagulation with apixaban.
#DM
- euglycemic DKA on admission, (likely due to SGLT2i) as well as starvation ketosis.
-SGLT2i stopped
#Zoster
-Acute.
-ID consulted.
-Management per primary team, ID and optho.
DATA:
Transthoracic Echocardiogram, 08/28/2025:
SUMMARY
1. Severely reduced LV systolic function. Estimated LVEF 25-30%. Hypokinesis of the mid to apical anterior and septal segments, apical inferior segment, and apex.
2. No significant valve disease.
3. Small to moderate pericardial effusion. (Looks moderate in parasternal views, and small in subcostal view.).
4. No prior study for comparison.
Physical Exam
Vital Signs/Labs
Vital Signs
Temp Pulse Resp BP Pulse Ox
98.8 F 71 12 125/79 97
08/29/25 23:51 08/30/25 10:00 08/29/25 10:15 08/30/25 10:00 08/30/25 08:30
08/29/25 08/30/25 08/31/25
06:59 06:59 06:59
Actual Weight 59.9 kg 57.7 kg
08/30/25 02:23
08/30/25 02:23
PT 16.8 Sec (11.4-14.6) H 08/28/25 10:01
INR 1.39 08/28/25 10:01
APTT 31.6 Sec (23.4-35.0) 08/28/25 02:16
Magnesium 2.0 mg/dl (1.6-2.3) 08/30/25 02:23
TSH 0.61 uIU/ml (0.47-4.68) 08/28/25 11:09
LAB Results
08/27/25 08/27/25 08/28/25
21:08 22:38 02:16
Troponin I 0.017 0.024 D 0.031 D
08/28/25 08/28/25 08/28/25
10:01 11:09 16:00
Troponin I Cancelled 0.029 Cancelled
08/28/25
22:00
Troponin I Cancelled
Physical Exam
Constitutional: No acute distress and Comfortable
EENT: Moist mucous membranes
Cardiovascular: Rhythm & rate is regular, Pedal edema is absent, JVD pressure is normal and Systolic murmur absent
Respiratory: Respiratory effort normal and Lungs clear to auscul.
Neuro/Psych: AO x 3
Data Reviewed
-
Date of Service: August 30, 2025
EKG: Other (SR 80s, PAC's, brief A fib)
Labs: Labs Reviewed by me
[2025-08-30 12:29] LABS: Glucose - Point of Care 194 mg/dl (70-99)
[2025-08-30] MEDS: NOVOLOG FLEXPEN-MODERATE RESISTANCE 1 UNITS SC ×2 (12:29→16:57)
--- NOTE | 2025-08-30 13:05 | PTCARENOTE ---
Pt rec'd this am at 07:15 from night RN, AOx3, c/o shooting pain in left side of face extending to ear, medicated with PRN Dilaudid, see MAR...pt reports good relief. Vitals stable, NSR on tele, room air sa02 97%. IVF infusing as ordered. Pt
tolerating meals today with no nausea. Pt ambulating to bathroom PRN with standby assistance from RN, reports mild dizziness with changing of positions. Safe environment ongoing, pt ringing for assistance as needed. Pt's arrives in room and
reports that pt's eye looks much better and less swollen today. Pt also agrees that her vision is improving from yesterday. No other needs at this time.
[2025-08-30 16:56] LABS: Glucose - Point of Care 187 mg/dl (70-99)
--- NOTE | 2025-08-30 19:45 | PTCARENOTE ---
pt tx to [facility] with all belongings, [facility] tele monitor placed, no complaints at this time
[2025-08-30] MEDS: NEURONTIN 300 MG PO (20:13)
[2025-08-30 21:00] LABS: Glucose - Point of Care 152 mg/dl (70-99)
[2025-08-31] MEDS: ZOVIRAX INJECTION 112 MG IV ×2 (03:20→09:40)
[2025-08-31 03:34] VITALS: BP 101/54
[2025-08-31] MEDS: D5LR 1000 IV (04:48)
[2025-08-31 07:53] VITALS: BP 116/69
[2025-08-31 08:09] LABS: Glucose - Point of Care 110 mg/dl (70-99)
[2025-08-31] MEDS: NOVOLOG FLEXPEN-MODERATE RESISTANCE SC (08:15)
[2025-08-31 08:36] LABS: Hematocrit 39.6 % (37.0-47.0); Hemoglobin 13.4 g/dL (12.0-16.0); Mean Corp Hgb Conc. 33.8 g/dL (33.0-37.0); Mean Corpuscular Volume 94.3 fL (81.0-99.0); Platelet Count 191 10^3/uL (130-400); Red Cell Dist. Width 12.6 % (11.5-14.5)
[2025-08-31 08:50] LABS: Blood Urea Nitrogen 21 mg/dl (7-17); Calcium 8.9 mg/dl (8.4-10.2); Carbon Dioxide 21 mmol/L (22-30); Chloride 108 mmol/L (98-107); Estimated Creatinine Clearance 52 ml/min; Glucose 111 mg/dl (70-99); Magnesium 2.1 mg/dl (1.6-2.3); Potassium 3.7 mmol/L (3.5-5.1); Sodium 136 mmol/L (135-145); eGFR > 60.00
[2025-08-31] MEDS: TOPROL XL 25 MG PO (09:40)
[2025-08-31] MEDS: ELIQUIS 5 MG PO (09:41)
[2025-08-31] MEDS: PEPCID 20 MG PO (09:41)
[2025-08-31] MEDS: DELTASONE 40 MG PO (09:41)
[2025-08-31] MEDS: GLUCOPHAGE 500 MG PO (09:42)
[2025-08-31] MEDS: DIOVAN 20 MG PO (09:42)
[2025-08-31] MEDS: PLAVIX 75 MG PO (09:42)
[2025-08-31] MEDS: POLYTRIM OPHTHALMIC SOLUTION 1 DROP OPHTH ×2 (09:44→13:00)
[2025-08-31] MEDS: PRED FORTE 1% EYE DROPS 1 DROP OPHTH ×2 (09:44→13:00)
[2025-08-31] MEDS: PROTONIX 40 MG PO (09:44)
[2025-08-31] MEDS: DILAUDID 0.5 MG IV (09:45)
--- NOTE | 2025-08-31 09:51 | W.PN.HOSP.TC ---
Today's Communication/Plan
-
Discharge home today
Assessment / Plan
Assessment / Plan
HPI: 55-year-old female presented to [facility] on 08/25 with complaints of left ear pain which started 1 week prior. Prior to her ER visit she had been placed on amoxicillin by her PCP, with no improvement in pain. She was then seen at an
urgent care and transitioned to Augmentin and methylprednisolone on 08/24. Despite these modalities she continued to have progressive left face and left ear pain. No vision changes were described at this time. She was ultimately diagnosed with
viral conjunctivitis and discharged with erythromycin ophthalmic ointment. She presents back to the ER in 08/27 with complaints of chest discomfort which started several hours prior to evaluation. Upon further exam she was found to have skin
changes on the left forehead consistent with herpes zoster, and Infectious Diseases is asked to comment upon further antiviral therapy. At this time she has been started on IV acyclovir.
#Shingles of the left V1 distribution
Appreciate ID input, improving on IV acyclovir, ophthalmic prednisolone drops, oral prednisone
Patient having blurry vision of her left eye
08/[address] Miranda, who states there is no retinal necrosis, and recommends continuing current management
Medically stable for discharge on Valtrex 1 g 3 times daily for 7 more days as per ID, prednisone taper, ophthalmic prednisolone drops 4 times daily
Follow-up with ophthalmology in 1 day on 09/01/2025
#Probable starvation ketosis, less likely diabetic ketoacidosis
Patient initially thought to be in DKA, and treated with insulin drip
Appreciate beef pluck trimmer input, patient has not eaten for more than 3-5 days and her pH > 7.3, which is more consistent for starvation ketosis
Patient now having good oral intake
#Persistent nausea
#Intermittent vertigo
Appreciate GI input, who suspects nausea is related to vertigo as it is occurring with movement
Resolved on meclizine and antiemetics prn
Encourage oral intake
#Hypokalemia
Repleted and resolved
#Atypical chest pain
Serial troponins are neg, 08/28 echo EF 25%, small to mod pericardial effusion
Appreciate cardiology input, who is recommending PPI for possible GERD
[facility]
#Recently diagnosed atrial fibrillation
Continue Eliquis, Toprol XL
#Coronary artery disease
#History of [place] status post PCI
Cardiology transitioned Brilinta to Plavix, new prescription sent
Continue Eliquis
#Ischemic cardiomyopathy
Continue GDMT
#Diabetes, hemoglobin A1c 6.4
Production Support Analyst suspects starvation ketosis over diabetic ketoacidosis
Status post IV insulin drip, now on sliding scale insulin
Diabetes nurse practitioner recommends permanent discontinuation of Jardiance
Continue insulin management as per diabetes nurse practitioner
#Hyponatremia
Improving
#Essential hypertension
Continue valsartan, Toprol XL
Blood pressure soft, recommend holding spironolactone upon discharge
Follow-up with PCP for blood pressure check, and resume if needed
#Hyperlipidemia
Continue statin
DVT prophylaxis�Eliquis
Full code
Physical Exam
General: Appears to not feel well, no acute distress
HEENT: Normocephalic, Atraumatic, EOMI, MMM
Left-sided conjunctival injection, edema of left eyelids
Respiratory: Clear to Auscultation bilaterally
Cardiac: Normal S1/S2, Regular Rate and Rhythm
GI: Soft, Nontender, Nondistended, Normal Bowel Sounds
Extremities: No Clubbing, Cyanosis, or Edema
Neuro: Nonfocal/Grossly Intact
Psych: Calm, Cooperative
Derm: Vesicular rash in a few left V1 distribution
Anticipated Discharge: Today
Subjective/Interval History
-
Date of Service: August 30, 2025
Patient reports nausea and vertigo have resolved. She reports eating well. She does have pain behind her left eye, was 10 out of 10 in intensity, improved to 4. Denies chest pain, denies shortness of breath. No fever, no vomiting.
Objective Data
-
Labs:
Laboratory Results
08/30/25
02:23
WBC 7.7
Hgb 13.7
Hct 40.2
Plt Count 217
Sodium 137
Potassium 3.4 L
Chloride 104
Carbon Dioxide 23
BUN 18 H
Creatinine 0.7
Glucose 129 H
Calcium 8.7
Vital Signs:
Vital Signs
Temp Pulse Resp BP Pulse Ox
98.2 F 71 12 125/79 97
08/30/25 12:33 08/30/25 10:00 08/29/25 10:15 08/30/25 10:00 08/30/25 08:30
I&O
08/29/25 08/30/25 08/31/25
06:59 06:59 06:59
Intake Total 3684.5 / 3684.5 1440 / 1515 875 / 875
Output Total 900 / 900 1850 / 1850 1200 / 1200
Balance 2784.5 / 2784.5 -410 / -335 -325 / -325
[2025-08-31 11:25] VITALS: BP 99/57
--- NOTE | 2025-08-31 11:50 | W.PN.CD ---
Today's Communication / Plan
-
apixaban/clopidogrel
Metoprolol succinate 25 mg: increased to twice daily yesterday
Valsartan 20 mg PO BID
Impression / Plan
-
Impression/Plan: 55 y/o female that is typically seen at [facility] and with a history of HTN, HLD, [place] s/p PCI complicated by ischemic cardiomyopathy/HFrEF and LV thrombus on apixaban admitted with chest pain, left V1 zoster outbreak and euglycemic DKA.
Primary jeweler apprentice: Davis Morton M.D.
#Chest pain
-Atypical, resolved.
-Initially treated with nitro gtt which has been weaned off.
-Normal troponins r/o ACS. Negative D-Dimer r/o PE/Acute aortic syndrome. Normal inflammatory markers makes pericarditis less likely.
-Several days of nausea/vomiting followed by chest pain makes GERD/esophagitis much more likely. No hematemesis, making subhash-green tear unlikely.
-Pantoprazole 40 mg PO daily.
#CAD
-Chronic.
-Hx of [place] with PCI.
-D/C ticagrelor.
-with new A fib, plan will be apixaban/clopidogrel
#Ischemic Cardiomyopathy/HFrEF
-Chronic. No signs of decompensated HF.
-Echocardiogram shows LVEF 25-30%.
-GDMT as hemodynamics will tolerate:
-Diuretics: None, no signs of volume overload.
-Beta alisa: Metoprolol succinate 25 mg: increased to twice daily
-ACEI/ARB/ARNi: Valsartan 20 mg PO BID.
-MRA: Spironolactone on hold given acuity, dehydration.
-SGLT2i: stopped due to euglycemic DKA. She is no longer a candidate for this.
-ICD: LVEF remains < 35%. Defer ICD placement to her primary jeweler apprentice.
#Atrial fibrillation, paroxysmal
-New diagnosis, observed on telemetry. Mostly in sinus now: better with higher dose metoprolol.
-Toprol XL.
-CHADS2-VASc = 4 (CHF, DM, vascular disease, female gender).
-Therapeutic anticoagulation with apixaban.
#DM
- euglycemic DKA on admission, (likely due to SGLT2i) as well as starvation ketosis.
-SGLT2i stopped
#Zoster
-Acute.
-ID consulted.
-Management per primary team, ID and optho.
DATA:
Transthoracic Echocardiogram, 08/28/2025:
SUMMARY
1. Severely reduced LV systolic function. Estimated LVEF 25-30%. Hypokinesis of the mid to apical anterior and septal segments, apical inferior segment, and apex.
2. No significant valve disease.
3. Small to moderate pericardial effusion. (Looks moderate in parasternal views, and small in subcostal view.).
4. No prior study for comparison.
Physical Exam
Vital Signs/Labs
Vital Signs
Temp Pulse Resp BP Pulse Ox
98 F 84 16 99/57 100
08/31/25 11:25 08/31/25 11:25 08/31/25 11:25 08/31/25 11:25 08/31/25 11:25
08/30/25 08/31/25 09/01/25
06:59 06:59 06:59
Actual Weight 57.7 kg
08/31/25 08:11
08/31/25 08:11
PT 16.8 Sec (11.4-14.6) H 08/28/25 10:01
INR 1.39 08/28/25 10:01
APTT 31.6 Sec (23.4-35.0) 08/28/25 02:16
Magnesium 2.1 mg/dl (1.6-2.3) 08/31/25 08:11
TSH 0.61 uIU/ml (0.47-4.68) 08/28/25 11:09
LAB Results
08/28/25 08/28/25
16:00 22:00
Troponin I Cancelled Cancelled
Physical Exam
Constitutional: No acute distress and Comfortable
EENT: Moist mucous membranes
Cardiovascular: Rhythm & rate is regular, Pedal edema is absent, JVD pressure is normal and Systolic murmur absent
Respiratory: Respiratory effort normal and Lungs clear to auscul.
Neuro/Psych: AO x 3
Data Reviewed
-
Date of Service: August 31, 2025
EKG: Other (Tele: SR 70s, no A fib)
Labs: Labs Reviewed by me
[2025-08-31 11:55] VITALS: BP 99/57
[2025-08-31 12:55] LABS: Glucose - Point of Care 170 mg/dl (70-99)
[2025-08-31] MEDS: NOVOLOG FLEXPEN-MODERATE RESISTANCE 300 UNITS SC (12:59)
--- NOTE | 2025-08-31 12:59 | W.DCSUMMARY ---
Discharge Summary
Discharge Data
Date of Admission: 08/27/25
Date of Discharge: 08/31/25
-
Pending Results: No
Hospital Course
Discharge diagnosis:
Shingles of the left V1 distribution
Probable starvation ketosis, less likely diabetic ketoacidosis
Intermittent vertigo
Persistent nausea
Hypokalemia
Atypical chest pain
Recently diagnosed atrial fibrillation
Coronary artery disease
History of myocardial infarction
Ischemic cardiomyopathy
Diabetes, hemoglobin A1c 6.4
Hyponatremia
Essential hypertension
Hyperlipidemia
Consults: Electromechanical Technologist, ID, ophthalmology, cardiology
Hospital course:
55-year-old female with a past medical history of atrial fibrillation on Eliquis, CAD/ME status post PCI, diabetes, hypertension, and hyperlipidemia was admitted for shingles of the left V1 distribution and starvation ketosis. Patient was seen in
conjunction with ID, the vasc tech, and ophthalmology for the left V1 distribution shingles. She was treated with IV acyclovir, oral prednisone, and prednisolone ophthalmic drops. She was also seen in conjunction with ophthalmology, who ruled
out retinal necrosis.
Patient was initially thought have Jardiance induced euglycemic diabetic ketoacidosis and treated with an IV insulin drip. Her pH was greater than 7.3 and she had not eaten in 3-4 days prior to admission. The vasc tech thinks that she has
starvation ketosis, and less likely diabetic ketoacidosis. In either case, the diabetes nurse practitioner recommends permanent discontinuation of Jardiance. She was started on metformin, and can continue metformin upon discharge.
Patient complained of chest pain upon admission. She was seen in conjunction with cardiology, who suspects that her atypical chest pain could be due to reflux. Cardiology recommends pantoprazole. She was started on pantoprazole, and her chest
pain resolved. She can continue pantoprazole upon discharge. She is also on Brilinta for history of [place] with PCI. Cardiology changed her Brilinta to Plavix.
Patient reports not eating for 3-4 days prior to admission secondary to persistent nausea. Patient has intermittent vertigo and persistent nausea, that is worsened with movement. She was treated with meclizine and antiemetics. Her vertigo and
nausea resolved. She tolerated a diet.
Patient's blood pressure was soft during her hospitalization. It is recommended that she hold her spironolactone. She can have her blood pressure checked when she follows up with her PCP, and resume if appropriate.
Patient is medically stable and cleared by ID for discharge. ID recommends discharge on Valtrex, prednisone taper, and prednisolone ophthalmic drops. She needs to follow-up with ophthalmology in the office in 1 day, and her PCP in less than 1 week.
Disposition: Home self-care
Discharge planning: Required 39 minutes
Discharge Plan
-
Patient Disposition: Home (Routine Discharge)
Discharge Diagnosis/Procedures: Left upper face/ V1 shingles, starvation ketosis, vertigo, nausea, poor oral intake
Condition: Good
Diet: Diabetic, Carb Controlled
Activity: As tolerated
Driving Restrictions: As prior to admission
Activity Restrictions/Additional Instructions:
Cardiology changed your Brilinta to Plavix.
Cardiology thinks your initial chest pain was due to reflux, you have been prescribed pantoprazole for reflux.
Your blood pressure in the hospital was low. Recommend you hold/not take spironolactone/Aldactone.
Please follow-up with your PCP in less than 1 week.
They can repeat your blood pressure, and let you know when it is okay to resume your spironolactone/Aldactone.
Please follow-up with ophthalmology, Dr. Miranda on 09/01/2025.
Referrals:
Davey Miranda MD [Active, Ophthalmology] - in one day
Jose Isbell MD [Family Provider, Internal Medicine] - in less than 1 week
Prescriptions:
New
meclizine 25 mg Tablet
25 mg PO Q8HPRN PRN (Reason: nausea/room spinning) Qty: 20 0RF
metformin 500 mg Tablet
500 mg PO BID@0800,1700 Qty: 60 0RF
gabapentin 300 mg Capsule
300 mg PO BID Qty: 60 0RF
clopidogrel 75 mg Tablet
75 mg PO DAILY Qty: 30 0RF
prednisolone acetate 1 % Drops,Suspension
1 drp LEFT EYE QID Qty: 10 0RF
pantoprazole 40 mg Tablet,Delayed Release (Dr/Ec)
40 mg PO DAILY Qty: 30 0RF
valacyclovir [Valtrex] 1 gram tablet
1,000 mg PO TID 7 Days Qty: 21 0RF
ondansetron 4 mg tablet,disintegrating
4 mg PO Q6H PRN (Reason: nausea and vomiting) Qty: 20 0RF
prednisone 10 mg Tablet
See Rx Instructions .ROUTE .COMPLEX Qty: 30 0RF
Rx Instructions:
Take By Mouth:
40 mg daily x3 days, 30 mg daily x3 days,
20 mg daily x3 days, 10 mg daily x3 days.
oxycodone 5 mg tablet
5 mg PO TID PRN (Reason: Pain) Qty: 20 0RF
Continued
atorvastatin 40 mg Tablet
40 mg PO HS
famotidine 20 mg Tablet
20 mg PO BID
metoprolol succinate 25 mg Tablet Extended Release 24 Hr
25 mg PO HS
valsartan 40 mg Tablet
20 mg PO BID
Eliquis 5 mg Tablet
5 mg PO BID
Held
spironolactone 25 mg Tablet
25 mg PO DAILY
Hold Instructions: Resume on 09/15/25.
Discontinued
erythromycin 5 mg/gram (0.5 %) ointment
1 applic ophthalmic (eye) Q6H Qty: 3.5 0RF
ticagrelor [Brilinta] 90 mg Tablet
90 mg PO BID
Jardiance 10 mg Tablet
10 mg PO DAILY
Discharge Orders:
Discharge Patient (As Directed); Ordered 08/31/25
Ordered By: Ruben Huizar
Discharge Date and Time
Discharge Date/Time: 08/31/25 15:24
Print Language: JAPANESE
--- NOTE | 2025-08-31 14:05 | PTCARENOTE ---
Assumed care of pt from previous nurse. Pt reports discomfort to eye as tolerable. Pt for dc today. Pt call durán is within reach, pt rings min. will cont to monitor.
--- NOTE | 2025-08-31 15:20 | PTCARENOTE ---
Pt dc'd to home, via w/c to waiting in car. DC paperwork reviewed, 2 iv's removed, tele removed. All belongings from room. Pt dc'd without issue.
== END 2025-08-31 15:24 | disposition home or self-care (01) | DRG 638 ==
LOC: 4 WEST ACU 23:43
PROVIDERS: Nurse Practitioner Primary Care; Student in an Organized Health Care Education/Training Program; ADMITTING PHYSICIAN Internal Medicine; ATTENDING PHYSICIAN Family Medicine; CONSULT PHYSICIAN Internal Medicine; CONSULT PHYSICIAN Internal Medicine Critical Care Medicine; CONSULT PHYSICIAN Internal Medicine Infectious Disease; CONSULT PHYSICIAN Ophthalmology; EMERGENCY PHYSICIAN Emergency Medicine; FAMILY PHYSICIAN Internal Medicine; OTHER PHYSICIAN Internal Medicine Cardiovascular Disease
DX: E11.10 Type 2 diabetes mellitus with ketoacidosis without coma (principal); B02.29 Other postherpetic nervous system involvement; B02.30 Zoster ocular disease, unspecified; E87.1 Hypo-osmolality and hyponatremia; H20.9 Unspecified iridocyclitis; I50.22 Chronic systolic (congestive) heart failure; I48.0 Paroxysmal atrial fibrillation; E78.00 Pure hypercholesterolemia, unspecified; E87.6 Hypokalemia; H16.9 Unspecified keratitis; I25.10 Atherosclerotic heart disease of native coronary artery without angina pectoris; I25.5 Ischemic cardiomyopathy; I11.0 Hypertensive heart disease with heart failure; I48.91 Unspecified atrial fibrillation; I25.2 Old myocardial infarction; Z79.4 Long term (current) use of insulin; Z79.899 Other long term (current) drug therapy; Z79.02 Long term (current) use of antithrombotics/antiplatelets; Z79.01 Long term (current) use of anticoagulants; Z95.5 Presence of coronary angioplasty implant and graft
CPT/HCPCS: 71045; 80048; 80053; 82010; 82533; 82570; 82805; 82962; 83036; 83605; 83735; 83930; 84100; 84300; 84443; 84484; 84703; 85025; 85027; 85379; 85610; 85730; 86140; 86787; 87798; 93005; 93306; 99285